=== PATIENT | female | born 1970 | race Caucasian/White ===

== ENCOUNTER 2018-02-14 12:28 | Observation (INO) ==
[2018-02-14] MEDS ORDERED: Gadobenate Dimeglumine PF Inj 10 ML VIAL (for RAD MRI) IVCONTRAST ONE (12:29)
[2018-02-14] MEDS ORDERED: Gadobutrol PF 10 MMOL/10 ML Vial (for RAD) IV.SIG ONE ×2 (12:29→17:12)
--- NOTE | 2018-02-14 13:26 | ED ---
HPI General Chief complaint: Weakness Stated complaint: Weakness/Evac Time Seen by Provider: 02/14/18 12:51 Source: patient Mode of arrival: EMS Limitations: physical limitation History of Present Illness HPI Narrative: 47-year-old female complaining of left-sided numbness and weakness. 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 Patient was admitted to the hospital in [place]. Patient was discharged home with instruction to follow with speech therapy PT and OT. Patient recently moved to [facility]. Patient went to speech therapy this morning. Patient states that she has increasing left-sided weakness since this morning. Patient denies any headache. Patient denies any visual change. Patient denies any neck pain. Patient denies any chest pain or shortness of breath. Patient denies abdominal pain. Patient denies any new injury. Patient is going through speech therapy, OT and PT. Patient states that she is done with OT. Patient continue with speech therapy and PT. MD Complaint: focal weakness and numbness Onset (ago): hour(s) Duration: constant Location: LUE, LLE and face Migration: none Severity: moderate Severity scale (1-10): 5 Quality: numbness Relieving factors: none Exacerbating factors: none Associated symptoms: denies other symptoms Related Data Home Medications Medication Instructions Recorded Confirmed apixaban [Eliquis] 5 mg PO DAILY 02/14/18 02/14/18 levetiracetam [Keppra] 250 mg PO Q12H 02/14/18 02/14/18 Allergies Allergy/AdvReac Type Severity Reaction Status Date / Time codeine Allergy Severe ANGER Verified 02/14/18 13:08 lamotrigine [From Lamictal] Allergy Severe Rash Verified 02/14/18 13:08 atorvastatin [From Lipitor] Allergy Lethargy Verified 02/14/18 13:08 Review of Systems Except as stated in HPI: all other systems reviewed are negative [facility] Medical History Medical History CVA, old, dysarthria (Acute) High cholesterol (Acute) Polycystic kidney (Acute) Polycystic liver disease (Acute) Seizure (Acute) Surgical History Surgical History H/O endarterectomy (Acute) Hx of tubal ligation (Acute) Social History Social History Substance History: No History of Abuse Second Hand Smoke Exposure: No Smoking Status: Former smoker How Often Do You Have a Drink Containing Alcohol: Monthly or less [facility] within the Last 8 Weeks: No Recent Out of Country Travel within the Last 8 Weeks: No Immunization History Tetanus Immunization: Unsure Hx Influenza Vaccine This Season: No Exam Narrative Exam Narrative: GENERAL: Well-nourished, well-developed patient. SKIN: Focused skin assessment warm/dry. HEAD: Normocephalic. EYES: No scleral icterus. No injection or drainage. NECK: Supple, trachea midline. No JVD or lymphadenopathy. CARDIOVASCULAR: Regular rate and rhythm without murmurs, gallops, or rubs. RESPIRATORY: Breath sounds equal bilaterally. No accessory muscle use. GASTROINTESTINAL: Abdomen soft, non-tender, nondistended. MUSCULOSKELETAL: No cyanosis, or edema. BACK: Nontender without obvious deformity. No CVA tenderness. Neurologic exam: Patient has no obvious facial drooping. Visual field intact. Patient has mild weakness left upper and lower extremity. Patient has moderate decrease light touch sensation left upper and lower extremity. Course Initial Documented Vital Signs Temperature 98.3 F 02/14/18 12:30 Pulse Rate 86 02/14/18 12:30 Respiratory Rate 20 02/14/18 12:30 Blood Pressure 149/66 H 02/14/18 12:30 Pulse Oximetry 96 02/14/18 12:30 Last Documented Vital Signs Temperature 98.3 F 02/14/18 12:30 Pulse Rate 74 02/14/18 18:33 Respiratory Rate 19 02/14/18 18:33 Blood Pressure 119/60 02/14/18 18:33 Pulse Oximetry 98 02/14/18 18:33 Medical Decision Making MDM Narrative Medical decision making narrative: 47-year-old female with increase in left- sided weakness and numbness. History of CVA in September 2017 with residual left sided weakness and numbness. Patient states that the weakness and numbness is worse this morning. I spoke with Dr. Hankins, advised MRI MRA. Patient should be admitted for observation and will see patient in the morning. Differential Diagnosis Differential Diagnosis: Differential diagnosis including acute exacerbation weakness and numbness of the left upper lower extremity from CVA, new CVA, electrolyte imbalance. Lab Data Lab results reviewed: Yes I reviewed the patient's lab results. Result diagrams: 02/14/18 12:40 02/14/18 12:40 Lab Results 02/14/18 02/14/18 Range/Units 12:40 12:40 WBC 6.8 (4.0-11.0) th/mm3 RBC 4.05 (4.00-5.30) mil/mm3 Hgb 13.4 (11.6-15.3) gm/dL Hct 38.6 (35.0-46.0) % MCV 95.3 (80.0-100.0) fL MCH 33.0 (27.0-34.0) pg MCHC 34.6 (32.0-36.0) % RDW 12.1 (11.6-17.2) % Plt Count 190 (150-450) th/mm3 MPV 8.2 (7.0-11.0) fL Neut % (Auto) 52.6 (16.0-70.0) % Lymph % (Auto) 36.2 (9.0-44.0) % [place] % (Auto) 9.4 H (0.0-8.0) % Eos % (Auto) 1.5 (0.0-4.0) % Baso % (Auto) 0.3 (0.0-2.0) % Neut # (Auto) 3.6 (1.8-7.7) th/mm3 Lymph # (Auto) 2.5 (1.0-4.8) th/mm3 [place] # (Auto) 0.6 (0.0-0.9) th/mm3 Eos # (Auto) 0.1 (0.0-0.4) th/mm3 Baso # (Auto) 0.0 (0.0-0.2) th/mm3 WBC Differential . Differential Comment Auto diff final Sodium 140 (136-145) meq/L Potassium 3.8 (3.5-5.1) meq/L Chloride 105 (98-107) meq/L Carbon Dioxide 27.2 (21.0-32.0) meq/L Anion Gap 8 (5-15) meq/L BUN 11 (7-18) mg/dL Creatinine 0.87 (0.50-1.00) mg/dL Estimated GFR 69 L (>89) mL/min Random Glucose 77 (74-106) mg/dL Calcium 8.7 (8.5-10.1) mg/dL Total Bilirubin 0.6 (0.2-1.0) mg/dL AST 22 (15-37) U/L ALT 35 (10-53) U/L Alkaline Phosphatase 141 H (45-117) U/L Total Creatine Kinase 66 (26-192) U/L Troponin I Less than 0.02 L (0.02-0.05) ng/mL Total Protein 7.1 (6.4-8.2) g/dL Albumin 3.6 (3.4-5.0) g/dL Imaging Data Radiologist's impression: ITS Impressions Head MRI 02/14/18 13:08 CONCLUSION: 1. Abnormal signal in small scattered areas of the right frontal, temporal, and parietal lobes. The signal characteristics are suggestive of gliosis. This can be seen in prior areas of infarction or less likely trauma. 2. No acute infarction observed. Neck MRA 02/14/18 16:39 CONCLUSION: 1. Patient is left vertebral dominant. 2. Otherwise, cervical vessels are all patent with no significant stenosis Percent stenosis is calculated using the diameter of the stenotic region over the diameter of the normal distal internal carotid artery Discharge Plan Discharge Disposition Patient Disposition: 30 Still Patient Discharge Details Diagnosis: Weakness due to old stroke Physicians Team ED Provider: Mervin Villanueva Primary Care Provider: NON STAFF,PROVIDER Rxs /Orders / Referrals /Forms Prescriptions: No Action levetiracetam [Keppra] 250 mg Tablet 250 mg PO Q12H RF: 0 apixaban [Eliquis] 5 mg Tablet 5 mg PO DAILY RF: 0 Status ED Status: In Room
[2018-02-14 13:40] LABS: Baso % (Auto) 0.3 % (0.0-2.0); Eos # (Auto) 0.1 th/mm3 (0.0-0.4); Eos % (Auto) 1.5 % (0.0-4.0); Hematocrit 38.6 % (35.0-46.0); Hemoglobin 13.4 gm/dL (11.6-15.3); Lymph # (Auto) 2.5 th/mm3 (1.0-4.8); Lymph % (Auto) 36.2 % (9.0-44.0); Mean Corpuscular HGB Conc 34.6 % (32.0-36.0); Mean Corpuscular Volume 95.3 fL (80.0-100.0); Mean Platelet Volume 8.2 fL (7.0-11.0); Mono # (Auto) 0.6 th/mm3 (0.0-0.9); Mono % (Auto) 9.4 % (0.0-8.0); Neut # (Auto) 3.6 th/mm3 (1.8-7.7); Neut % (Auto) 52.6 % (16.0-70.0); Platelet Count 190 th/mm3 (150-450); Red Blood Count 4.05 mil/mm3 (4.00-5.30); Red Cell Distribution Width 12.1 % (11.6-17.2); White Blood Count 6.8 th/mm3 (4.0-11.0)
[2018-02-14 14:08] LABS: Alanine Aminotransferase 35 U/L (10-53); Albumin 3.6 g/dL (3.4-5.0); Anion Gap 8 meq/L (5-15); Aspartate Aminotransferase 22 U/L (15-37); Blood Urea Nitrogen 11 mg/dL (7-18); Calcium 8.7 mg/dL (8.5-10.1); Carbon Dioxide 27.2 meq/L (21.0-32.0); Chloride 105 meq/L (98-107); Glomerular Filtration Rate 69 mL/min (>89); Glucose,Random 77 mg/dL (74-106); Potassium 3.8 meq/L (3.5-5.1); Sodium 140 meq/L (136-145)
[2018-02-14 14:12] LABS: Alkaline Phosphatase 141 U/L (45-117); Total Protein 7.1 g/dL (6.4-8.2)
[2018-02-14 14:26] LABS: Creatine Kinase 66 U/L (26-192)
--- NOTE | 2018-02-14 15:24 | MR ---
EXAM DATE: 02/14/2018 3:09 PM EDT AGE/SEX: 47 years / Female INDICATIONS: CVA. Left sided weakness. CLINICAL DATA: This is the patient's initial encounter. Patient reports that signs and symptoms have been present for 1 day and indicates a pain score of 3/10. MEDICAL/SURGICAL HISTORY: Transient ischemic attack. Polycystic Kidney and Liver. Carotid enda rterectomy. Tubal ligation. COMPARISON: None. TECHNIQUE: Multiplanar, multisequence examination of the brain was performed without and with 7 ml Om niscan (gadodiamide) contrast as a single exam dose. FINDINGS: Cerebrum: Areas of high FLAIR signal involving the cortex and immediate subcortical white matter in m ultiple small foci involving the right frontal, temporal and parietal lobes. The ventricles are emilie l for age. No evidence of midline shift, mass lesion, hemorrhage or acute infarction. No extraaxial fluid collections are seen. The pituitary gland and suprasellar cistern are normal in configuration . White Matter: A few small scattered foci of high FLAIR signal abnormality involving the subcortical white matter of the right frontal and parietal lobes.. Posterior Fossa: The cerebellum and brainstem are intact. The 4th ventricle is midline. The cerebel lopontine angle is unremarkable. The cerebellar tonsils are normal in position. Diffusion Imaging: No focal areas of restricted diffusion are seen. No evidence of acute infarction . Extracranial: The visualized portions of the orbits and paranasal sinuses are unremarkable. Post Contrast: No abnormal areas of parenchymal or dural enhancement. No evidence of blood-brain ba rrier breakdown. CONCLUSION: 1. Abnormal signal in small scattered areas of the right frontal, temporal, and parietal lobes. The signal characteristics are suggestive of gliosis. This can be seen in prior areas of infarction or le ss likely trauma. 2. No acute infarction observed. Electronically signed by: Justin Adams MD 02/14/2018 3:23 PM EDT
--- NOTE | 2018-02-14 17:41 | ECG ---
Date Performed: 02/14/2018 Time Performed: 12:39:54 PTAGE: 47 years EKG: SINUS BRADYCARDIA BORDERLINE ECG NO PREVIOUS TRACING DOCTOR: Tank Abarca Interpretating Date/Time 02/14/2018 17:39:53
--- NOTE | 2018-02-14 17:46 | MR ---
EXAM DATE: 02/14/2018 5:40 PM EDT AGE/SEX: 47 years / Female INDICATIONS: . CVA. CLINICAL DATA: This is the patient's initial encounter. Patient reports that signs and symptoms have been present for 1 day and indicates a pain score of 2/10. MEDICAL/SURGICAL HISTORY: Transient ischemic attack. Coronary artery stent. COMPARISON: No prior exams available for comparison. TECHNIQUE: 10 ml Gadavist (gadobutrol) contrast infused MRA (single exam dose) of the extracranial circulation was performed using a neurovascular coil. Postprocessing was performed, including rotati ng sub-volume maximum intensity projections of each carotid artery, rotating full-volume maximum inte nsity projections of both carotid arteries, sagittal and coronal sliding thin-slab reformations of ea ch carotid artery, and left oblique sliding thin-slab reformation through the aortic arch to include the origin of the arch branch vessels. FINDINGS: Aortic Arch : There is a three-vessel origin of the great vessels from the aorta. No evidence of o stial narrowing. Right Carotid : The common carotid artery is intact. The carotid bulb has a normal configuration wi thout ulceration or narrowing. The internal carotid artery lumen is smooth without stenosis. The ex ternal carotid artery is intact. Left Carotid : The common carotid artery is intact. The carotid bulb has a normal configuration wit hout ulceration or narrowing. The internal carotid artery lumen is smooth without stenosis. The ext ernal carotid artery is intact. Vertebrals : Patient is left vertebral dominant. The right vertebral may terminate in a PICA branch CONCLUSION: 1. Patient is left vertebral dominant. 2. Otherwise, cervical vessels are all patent with no significant stenosis Percent stenosis is calculated using the diameter of the stenotic region over the diameter of the nor mal distal internal carotid artery Electronically signed by: Cr Sousa MD 02/14/2018 5:44 PM EDT
[2018-02-14 20:03] LABS: Bacteria,Urine Moderate /hpf; Bilirubin,Urine Negative (Negative); Clarity,Urine Clear (Clear); Color,Urine Straw (Yellw/Straw); Glucose,Urine (UA) Negative (Negative); Leukocyte Esterase,Urine Negative (Negative); Nitrite,Urine Negative (Negative); Specific Gravity,Urine 1.002 (1.002-1.035); Squamous Epithelial Cell,Urine 1 /hpf (0-5)
[2018-02-14] MEDS ORDERED: Acetaminophen 325 MG Tablet PO PRN (21:02)
[2018-02-14] MEDS ORDERED: Bisacodyl 10 MG Supp RECTAL PRN (21:02)
[2018-02-14] MEDS ORDERED: Heparin - SQ 10,000 UNITS/ML Vial SQ SCH (21:15)
--- NOTE | 2018-02-15 04:22 | P.HP ---
History of Present Illness Service: [facility] Primary Care Physician: PROVIDER NON STAFF Chief Complaint: weakness History of Present Illness: 47-year-old female with a past medical history significant for previous CVA, seizure disorder, hyperlipidemia, polycystic kidney and liver disease presents to the emergency department for the evaluation of left-sided weakness. The patient reports that her weakness started yesterday morning. He denies any rhinorrhea or headaches. No visual changes. No chest pain or shortness of breath. No abdominal pain. No nausea/vomiting/diarrhea. No fever/chills. The patient reports that her symptoms have now resolved with her strength is back to baseline. Inpatient Certification: I certify that the inpatient services were ordered in accordance with Medicare regulations governing the order. This includes certification that hospital inpatient services are reasonable and necessary and in the case of services not specified as inpatient-only under 42 CFR 419.22(n), that they are appropriately provided as inpatient services in accordance to with the 2-midnight benchmark under 43 CFR 412.3(e) Review of Systems All other systems reviewed negative except as stated in HPI PMFSH - History History Provided By: Patient - Medical History Medical History: Medical History (Last Reviewed 02/14/18 @ 13:22 by Mervin Villanueva MD) CVA, old, dysarthria High cholesterol Polycystic kidney Polycystic liver disease Seizure - Surgical History Surgical History: Surgical History (Last Reviewed 02/14/18 @ 13:22 by Mervin Villanueva MD) H/O endarterectomy Hx of tubal ligation - Tobacco History Second Hand Smoke Exposure: No Tobacco Use In Past 30 Days: No Smoking Status: Former smoker - Alcohol History How Often Do You Have a Drink Containing Alcohol: Monthly or less - Substance Use History Substance History: No History of Abuse - Travel History Recent Travel in the [place] Within the Last 8 Weeks: No Recent Travel Out of the Country Within the Last 8 Weeks: No - Immunization History Tetanus Immunization: Unsure Hx Influenza Vaccine This Season: No Medications and Allergies Active Medications: Active Medications Acetaminophen (Tylenol) 650 mg PO Q4H PRN PRN Reason: Temp > 100.4 Al Hydroxide/Mg Hydroxide (Milk Of Magnlorna Liq) 30 ml PO Q12H PRN PRN Reason: Mild Constipation Bisacodyl (Dulcolax Supp) 10 mg RECTAL DAILY PRN PRN Reason: SEVERE CONSITIPATION Heparin Sodium (Porcine) (Heparin Inj) 5,000 units SQ Q12H [facility] Last Admin: 02/14/18 23:41 Dose: 5,000 units Lactulose (Lactulose Liq) 30 ml PO DAILY PRN PRN Reason: SEVERE CONSITIPATION Ondansetron HCl (Zofran Inj) 4 mg IV.PUSH Q6H PRN PRN Reason: NAUSEA OR VOMITING Senna/Docusate Sodium (Nicolle-Colace) 1 tab PO BID [facility] Sennosides (Senokot) 17.2 mg PO Q12H PRN PRN Reason: Moderate Constipation Sodium Chloride (Ns Flush) 2 ml IV.FLUSH PRN PRN PRN Reason: FLUSH AFTER USING IV ACCESS Allergies Allergy/AdvReac Type Severity Reaction Status Date / Time codeine Allergy Severe ANGER Verified 02/14/18 13:08 lamotrigine [From Lamictal] Allergy Severe Rash Verified 02/14/18 13:08 atorvastatin [From Lipitor] Allergy Lethargy Verified 02/14/18 13:08 Home Medications Medication Instructions Recorded Confirmed Type apixaban [Eliquis] 5 mg PO DAILY 02/14/18 02/14/18 History levetiracetam [Keppra] 250 mg PO Q12H 02/14/18 02/14/18 History Exam Vital signs: Vital Signs 02/14/18 12:30 02/14/18 12:40 02/14/18 13:30 Temperature 98.3 F Pulse Rate 86 58 L Respiratory Rate 20 16 Blood Pressure 149/66 H 155/71 H Pulse Oximetry 96 96 99 02/14/18 14:30 02/14/18 18:33 02/14/18 23:44 Temperature 97.8 F Pulse Rate 56 L 74 77 Respiratory Rate 15 19 17 Blood Pressure 145/65 H 119/60 115/57 L Pulse Oximetry 98 98 97 Intake & Output 02/14/18 02/14/18 02/15/18 06:59 18:59 06:59 Weight 74.389 kg Narrative: Gen.: No acute distress Head: Normocephalic. Atraumatic. EENT: Pupils equal round and reactive to light. Nose without drainage. Airway intact. Throat without injection. Cardiovascular: Regular rate and rhythm. No murmurs, rubs or gallops. Respiratory: Lungs clear to auscultation bilaterally. No wheezes or rhonchi. Abdomen: Soft, nontender, nondistended. No peritoneal signs. Musculoskeletal: No gross deformities. No edema. Skin: No obvious rashes or erythema. Neuro: Cranial nerves II through XII intact. 5/5 strength throughout all 4 extremities. Handgrip strength 5/5. No paresthesias. Sensation intact. Psych: Appropriate mood and affect Results - Labs CBC & Chem 7: 02/14/18 12:40 02/14/18 12:40 Labs: Laboratory Results - last 24 hr 02/14/18 02/14/18 02/14/18 12:40 12:40 13:48 WBC 6.8 RBC 4.05 Hgb 13.4 Hct 38.6 MCV 95.3 MCH 33.0 MCHC 34.6 RDW 12.1 Plt Count 190 MPV 8.2 Neut % (Auto) 52.6 Lymph % (Auto) 36.2 [place] % (Auto) 9.4 H Eos % (Auto) 1.5 Baso % (Auto) 0.3 Neut # (Auto) 3.6 Lymph # (Auto) 2.5 [place] # (Auto) 0.6 Eos # (Auto) 0.1 Baso # (Auto) 0.0 WBC Differential . Differential Comment Auto diff final Sodium 140 Potassium 3.8 Chloride 105 Carbon Dioxide 27.2 Anion Gap 8 BUN 11 Creatinine 0.87 Estimated GFR 69 L Random Glucose 77 Calcium 8.7 Total Bilirubin 0.6 AST 22 ALT 35 Alkaline Phosphatase 141 H Total Creatine Kinase 66 Troponin I Less than 0.02 L Total Protein 7.1 Albumin 3.6 Urine Color Straw Urine Clarity Clear Urine pH 6.0 Ur Specific [place] 1.002 Urine Protein Negative Urine Glucose (UA) Negative Urine Ketones Negative Urine Occult Blood Negative Urine Nitrate Negative Urine Bilirubin Negative Urine Urobilinogen Less than 2 Ur Leukocyte Esterase Negative Urine RBC Less than 1 Urine WBC 1 Ur Squamous Epith Cells 1 Urine Bacteria Moderate H Micro UA Comment Culture indicated Urine Culture Comments Culture indicated - Imaging Impressions Head MRI 02/14/18 13:08 CONCLUSION: 1. Abnormal signal in small scattered areas of the right frontal, temporal, and parietal lobes. The signal characteristics are suggestive of gliosis. This can be seen in prior areas of infarction or less likely trauma. 2. No acute infarction observed. Neck MRA 02/14/18 16:39 CONCLUSION: 1. Patient is left vertebral dominant. 2. Otherwise, cervical vessels are all patent with no significant stenosis Percent stenosis is calculated using the diameter of the stenotic region over the diameter of the normal distal internal carotid artery Caprini VTE Risk Assessment [place] VTE Risk Assessment: Moderate/High Risk (score >= 2) Caprini Risk Assessment Model: Point Value = 1 Point Value = 2 Point Value = 3 Point Value = 5 Age 41-60 Minor surgery BMI > 25 kg/m2 Swollen legs Varicose veins or History of unexplained or recurrent spontaneous Oral contraceptives or hormone replacement Sepsis (< 1 month) Serious lung disease, including pneumonia (< 1 month) Abnormal pulmonary function Acute myocardial infarction Congestive heart failure (< 1 month) History of inflammatory bowel disease Medical patient at bed rest Age 61-74 Arthroscopic surgery Major open surgery (> 45 min) Laparoscopic surgery (> 45 min) Malignancy Confined to bed (> 72 hours) Immobilizing plaster cast Central venous access Age >= 75 History of VTE Family history of VTE Factor V Leiden Prothrombin [id number] Lupus anticoagulant Anticardiolipin antibodies Elevated serum homocysteine Heparin-induced thrombocytopenia Other congenital or acquired thrombophilia Stroke (< 1 month) Elective arthroplasty Hip, pelvis, or leg fracture Acute spinal cord injury (< 1 month) Prophylaxis Regimen: Total Risk Factor Score Risk Level Prophylaxis Regimen 0-1 Low Early ambulation 2 Moderate Order ONE of the following: *Sequential Compression Device (SCD) *Heparin 5000 units SQ BID 3-4 Higher Order ONE of the following medications: *Heparin 5000 units SQ TID *Enoxaparin/Lovenox 40 mg SQ daily (WT < 150 kg, CrCl > 30 mL/min) *Enoxaparin/Lovenox 30 mg SQ daily (WT < 150 kg, CrCl > 10-29 mL/min) *Enoxaparin/Lovenox 30 mg SQ BID (WT < 150 kg, CrCl > 30 mL/min) AND/OR *Sequential Compression Device (SCD) 5 or more Highest Order ONE of the following medications: *Heparin 5000 units SQ TID (Preferred with Epidurals) *Enoxaparin/Lovenox 40 mg SQ daily (WT < 150 kg, CrCl > 30 mL/min) *Enoxaparin/Lovenox 30 mg SQ daily (WT < 150 kg, CrCl > 10-29 mL/min) *Enoxaparin/Lovenox 30 mg SQ BID (WT < 150 kg, CrCl > 30 mL/min) AND *Sequential Compression Device (SCD) Assessment and Plan - Plan Assessment/plan: 1. TIA/weakness MRI brain significant for previous infarction without signs of acute process MRA without significant stenosis Neurology consulted, appreciate recommendations Continue Eliquis 2. Seizure disorder Continue home Kepp 3. Hyperlipidemia Continue home statin FEN Cardiac diet Electrolytes: Monitor and replete as needed Eliquis
[2018-02-15] MEDS: levETIRAcetam 250 MG Tablet PO SCH ×2 (05:10→16:11)
[2018-02-15] MEDS: Senna/Docusate Sodium 8.6/50 MG Tablet PO SCH ×2 (10:05→21:00)
[2018-02-15 10:38] LABS: Baso % (Auto) 0.2 % (0.0-2.0); Eos # (Auto) 0.1 th/mm3 (0.0-0.4); Hematocrit 38.9 % (35.0-46.0); Hemoglobin 13.4 gm/dL (11.6-15.3); Lymph % (Auto) 38.2 % (9.0-44.0); Mean Corpuscular HGB Conc 34.5 % (32.0-36.0); Mean Corpuscular Hemoglobin 33.1 pg (27.0-34.0); Mean Corpuscular Volume 95.8 fL (80.0-100.0); Mono # (Auto) 0.5 th/mm3 (0.0-0.9); Mono % (Auto) 8.9 % (0.0-8.0); Neut # (Auto) 2.7 th/mm3 (1.8-7.7); Neut % (Auto) 50.7 % (16.0-70.0); Platelet Count 195 th/mm3 (150-450); Red Blood Count 4.06 mil/mm3 (4.00-5.30); Red Cell Distribution Width 12.3 % (11.6-17.2); White Blood Count 5.2 th/mm3 (4.0-11.0)
[2018-02-15 11:00] LABS: Calcium 8.6 mg/dL (8.5-10.1); Carbon Dioxide 26.5 meq/L (21.0-32.0); Potassium 3.7 meq/L (3.5-5.1)
--- NOTE | 2018-02-15 20:02 | MB ---
cc: Kj Hankins MD, PhD Kj Hankins MD PhD DATE: 02/15/2018 REASON FOR CONSULTATION: TIA. HISTORY OF PRESENT ILLNESS: This is a 47-year-old female with history of previous stroke and seizure disorder, polycystic kidney disease, who yesterday developed increased left-sided weakness and presented to the ER. Today, the symptoms have resolved. She is back to her baseline state. PAST MEDICAL HISTORY: She has a history of a stroke in the past, dysarthria, hypercholesterolemia, polycystic kidney disease, polycystic liver disease, seizure disorder. MEDICATIONS: 1. Eliquis at home 5 mg b.i.d. 2. Dulcolax. 3. Lactulose. 4. Keppra 250 mg b.i.d. 5. Zofran p.r.n. NEUROLOGICAL EXAMINATION: Blood pressure is 110/56, pulse 84, respirations 14, temperature 97.3 degrees. Higher cortical functions are normal. Cranial nerves 2-12 are normal in detail. Motor exam is 5/5 strength of all groups. There is no drift. Fine motor skills are normal. Reflexes are symmetric. IMAGING STUDIES: MRI of the brain: Chronic changes are seen in the right frontotemporal and parietal lobes, consistent with gliosis probably due to previous stroke. No findings of any acute infarction identified. MRI of the neck is reviewed and is within normal limits with no evidence of any significant stenosis. LABORATORY DATA: White count 5200, hemoglobin 13.4, hematocrit 38.9%, platelet count 195,000. Sodium is 143, potassium 3.7, chloride 107, CO2 of 26.5, BUN is 15, creatinine 0.87, GFR 69, glucose is 81. IMPRESSION: Probable transient ischemic attack, now resolved. RECOMMENDATIONS: We will add low-dose aspirin 81 mg to the Eliquis. The patient is stable. She could be discharged home tomorrow if no other neurologic events. Kj Hankins MD, PhD JOHANNA/ , 07:41 PM , 08:00 PM
[2018-02-16] MEDS: levETIRAcetam 250 MG Tablet PO SCH (06:04)
[2018-02-16 07:55] LABS: Chol/HDL Ratio 2.38 Ratio; HDL Cholesterol 63.2 mg/dL (40.0-60.0)
[2018-02-16] MEDS: Senna/Docusate Sodium 8.6/50 MG Tablet PO SCH (09:26)
--- NOTE | 2018-02-16 12:13 | ECHRPT ---
Indication: CVA/TIA CONCLUSIONS The left ventricular systolic function is normal with an estimated ejection fraction in the range of 60-65%. There is trace tricuspid valve regurgitation. The estimated pulmonary arterial pressure is 22.8 mmHg. BP: / HR: Rhythm: Sinus MEASUREMENTS (Male / Female) Normal Values Technical Quality:Good 2D ECHO LV Diastolic Diameter PLAX 4.0 cm 4.2 - 5.9 / 3.9 - 5.3 cm LV Systolic Diameter PLAX 2.9 cm IVS Diastolic Thickness 1.0 cm 0.6 - 1.0 / 0.6 - 0.9 cm LVPW Diastolic Thickness 1.0 cm 0.6 - 1.0 / 0.6 - 0.9 cm LV Relative Wall Thickness 0.5 RV Internal Dim ED PLAX 2.9 cm LVOT Diameter 2.0 cm LA Systolic Diameter LX 2.8 cm 3.0 - 4.0 / 2.7 - 3.8 cm M-MODE Aortic Root Diameter MM 2.2 cm AV Cusp Separation MM 2.2 cm DOPPLER AV Peak Velocity 89.6 cm/s AV Peak Gradient 3.2 mmHg LVOT Peak Velocity 73.1 cm/s LVOT Peak Gradient 2.1 mmHg AV Area Cont Eq pk 2.6 cm MV Area PHT 3.7 cm Mitral E Point Velocity 43.4 cm/s Mitral A Point Velocity 54.8 cm/s Mitral E to A Ratio 0.8 LV E' Lateral Velocity 5.9 cm/s Mitral E to LV E' Lateral Ratio 7.3 LV E' Septal Velocity 4.5 cm/s Mitral E to LV E' Septal Ratio 9.7 TR Peak Velocity 179.0 cm/s TR Peak Gradient 12.8 mmHg Right Atrial Pressure 10.0 mmHg Pulmonary Artery Systolic Pressu 22.8 mmHg Right Ventricular Systolic Press 22.8 mmHg PV Peak Velocity 76.0 cm/s PV Peak Gradient 2.3 mmHg FINDINGS LEFT VENTRICLE The left ventricular systolic function is normal with an estimated ejection fraction in the range of 60-65%. Normal left ventricular size. Wall thickness is normal. No regional wall motion abnormalities are present. RIGHT VENTRICLE Normal right ventricular size and systolic function. LEFT ATRIUM The left atrial size is normal. RIGHT ATRIUM The right atrial size is normal. ATRIAL SEPTUM Normal atrial septal thickness without atrial level shunting by limited color doppler interrogation. AORTA The aortic root and proximal ascending aorta are normal in size on limited imaging. MITRAL VALVE Structurally normal mitral valve. No mitral valve stenosis or regurgitation. AORTIC VALVE Trileaflet aortic valve. No aortic valve stenosis or regurgitation. TRICUSPID VALVE Structurally normal tricuspid valve. There is trace tricuspid valve regurgitation. The estimated pulmonary arterial pressure is 22.8 mmHg. PULMONARY VALVE No pulmonary valve regurgitation or stenosis. VESSELS The inferior vena cava is normal in size. PERICARDIUM No pericardial effusion. Devyn Carson MD, FACC (Electronically Signed) Final Date:16 February 2018 12:11
--- NOTE | 2018-02-16 13:32 | P.PN ---
Subjective Interval history: Follow up TIA, left sided weakness. The patient reports her left sided weakness has resolved and her symptoms have returned to baseline. She denies any new medical complaints including no headache, lightheadedness, dizziness, chest pain , palpitations, shortness of breath, or abdominal complaints. She feels ready to go home. She plans to continue her outpatient physical therapy after discharge. Physical Exam Vital signs: Vital Signs 02/15/18 16:00 02/15/18 17:14 02/15/18 20:00 Temperature 97.6 F 98.1 F Pulse Rate 84 76 69 Respiratory Rate 14 16 Blood Pressure 110/56 L 124/68 Pulse Oximetry 98 97 02/16/18 00:00 02/16/18 01:00 02/16/18 04:00 Temperature 98.5 F 97.7 F Pulse Rate 62 78 70 Respiratory Rate 16 17 Blood Pressure 121/58 L 123/59 L Pulse Oximetry 95 97 02/16/18 08:00 02/16/18 12:00 Temperature 97.8 F 98.0 F Pulse Rate 62 72 Respiratory Rate 16 16 Blood Pressure 122/58 L 114/56 L Pulse Oximetry 97 95 Intake & Output 02/15/18 02/16/18 02/16/18 18:59 06:59 18:59 Intake Total 1020 / 1020 Balance 1020 / 1020 Weight 74.37 kg Intake: Oral 1020 / 1020 Other: # Voids 1 Date of Last Bowel Movement 02/16/18 Weight On Admission 74.389 kg Narrative: GENERAL: Well-nourished, well-developed middle aged female patient in [facility]. SKIN: Warm and dry. No rash. HEENT: Normocephalic. Atraumatic. Pupils equal and round. Mucous membranes pink and moist. CARDIOVASCULAR: Regular rate and rhythm. No murmur appreciated. RESPIRATORY: No accessory muscle use. Clear to auscultation. Breath sounds equal bilaterally. GASTROINTESTINAL: Abdomen soft, non-tender, nondistended. Normoactive bowel sounds x4. MUSCULOSKELETAL: No obvious deformities. Extremities without clubbing, cyanosis , or edema. NEUROLOGICAL: Awake and alert. No obvious cranial nerve deficits. Motor grossly within normal limits. Moving all extremities spontaneously. Mild aphasia. PSYCHIATRIC: Appropriate mood and affect; insight and judgment normal. Results - Labs CBC & Chem 7: 02/15/18 09:27 02/15/18 09:27 Laboratory Results - last 24 hr 02/16/18 06:10 Triglycerides 86 Cholesterol 151 LDL Cholesterol, Calc 71 HDL Cholesterol 63.2 H Cholesterol/HDL Ratio 2.38 Microbiology 02/14/18 13:48 Clean Catch Urine Urine Culture - Final 50-100,000 cfu/mL mixed gram positive marlon (probable contaminants) - Imaging Brain MRI 02/14/18: Abnormal signal in small scattered areas of the right frontal , temporal, and parietal lobes. The signal characteristics are suggestive of gliosis. This can be seen in prior areas of infarction or less likely trauma. No acute infarction observed. Head MRA 02/14/18: Patient is left vertebral dominant. Otherwise, cervical vessels are all patent with no significant stenosis Assessment and Plan - Plan 47-year-old female with a past medical history significant for previous CVA, seizure disorder, hyperlipidemia, polycystic kidney and liver disease presents to the emergency department for the evaluation of left-sided weakness. TIA, LUE Weakness: acute. Symptoms now improved. -MRI brain significant for previous infarction without signs of acute process -MRA without significant stenosis -Continue patient's Eliquis 5mg bid -Echo normal with EF 60-65% -Neurology consulted, appreciate recommendations, recommends adding baby aspirin daily -No further episodes, cleared for discharge by neurology Seizure disorder: chronic -Continue home Keppra Hyperlipidemia: chronic -Continue home statin DVT Prophylaxis: on Eliquis Discharge Planning: Discharge patient to home, outpatient physical therapy Condition on discharge: Stable Heart Healthy diet as tolerated Ad Cori activity Rx written: aspirin 81mg daily Follow-up with primary care physician and neurologist Dr. Hankins
== END 2018-02-16 15:14 | disposition home or self-care (01) ==
LOC: NEDA 12:28 → NEPGCP 12:28 → NEPC 12:28 → NEPGCP 21:00
PROVIDERS: ADMIT Family Medicine; ATTEND Family Medicine

== ENCOUNTER 2018-05-02 11:50 | Inpatient (IN) ==
[2018-05-02] MEDS ORDERED: Aluminum/Magnesium/Simethacone Susp 30 ML UDC PO PRN (14:10)
[2018-05-02] MEDS: levETIRAcetam 250 MG Tablet PO SCH (18:05)
[2018-05-02] MEDS ORDERED: Melatonin 5 MG Tablet PO PRN (21:00)
[2018-05-02] MEDS: Topiramate 25 MG Tablet PO SCH (21:24)
[2018-05-03] MEDS: levETIRAcetam 250 MG Tablet PO SCH ×2 (05:07→19:30)
[2018-05-03 07:40] LABS: Calcium 8.9 mg/dL (8.5-10.1); Carbon Dioxide 23.9 meq/L (21.0-32.0); Potassium 3.3 meq/L (3.5-5.1)
[2018-05-03 07:44] LABS: Chol/HDL Ratio 2.2 Ratio
[2018-05-03] MEDS: Topiramate 25 MG Tablet PO SCH ×2 (09:10→21:28)
[2018-05-03] MEDS ORDERED: Aluminum/Magnesium/Simethacone Susp 30 ML UDC PO PRN (13:52)
--- NOTE | 2018-05-03 14:18 | P.HPPSY ---
Provisional Diagnosis Admission Date: May 02, 2018 13:57 [place] I.: Psychotic disorder NOS Competence Certification of Person's Competence To Provide Express and Informed Consent I have personally examined Vanessa Carballo, a person being served at [facility] on, May 03, 2018 1403. Express and informed consent means consent voluntarily given in writing, by a competent person, after sufficient explanation and disclosure of the subject matter involved to enable the person to make a knowing and willful decision without any element of force, fraud, deceit, duress, or other form of constraint or coercion. This person is 18 years of age or older, is not now known to be incompetent to consent to treatment with a guardian advocate, and does not have a health care surrogate or proxy currently making medical treatment decisions. I have found this person to be one of the following: [] Competent to provide express and informed consent, as defined above, for voluntary admission to this facility and is competent to provide express and informed consent for treatment. He/she has the consistent capacity to make well reasoned, willful, and knowing decisions concerning his or her medical or mental health treatment. The person fully and consistently understands the purpose of the admission for examination/placement and is fully capable of personally exercising all rights [place] [[id number]] Incompetent to provide express and informed consent to voluntary admission, and this is incompetent to provide express and informed consent to treatment. The person must be transferred to involuntary status and a petition for a guardian advocate filed with the Circuit Court. [] Refusing to provide express and informed consent to voluntary admission but is competent to provide express and informed consent for treatment. The person must be discharged or transferred to involuntary status. Form shall be completed within 24 hours of a person's arrival at the receiving facility and filed in the clinical record of each person: 1. Admitted on a voluntary basis 2. Permitted to provide express and informed consent to his/her own treatment 3. Allowed to transfer from involuntary to voluntary status 4. Prior to permitting a person to consent to his or her own treatment after having been previously found incompetent to consent to treatment. History of Present Illness Capacity: Lacks capacity History of Present Illness: Patient is a 47-year-old female who comes here under Ray act from [facility] dated 05/01/2018 signed by a [id number] [place] that document reviewed stating suicidal plan to take pill homicidal plan to hurt family with a knife patient was seen screen at that facility radiographs were done that showed polycystic kidneys, urine toxicology negative blood alcohol level negative. Patient transferred to this facility for further care and attention after being medically cleared patient initially seen in her room with nurse Tyrese. Patient anxious markedly paranoid vigilant and distractible. She is quite disorganized in her responses essentially refusing to give any information. Though reluctantly acknowledges history of mental illness that she does see a psychiatrist she has been hospitalized in the past otherwise her responses were see my records. She became more and more angry finally stopped speaking with me. I did call patient's and Christy Gannon that [phone] we stated she had been caring for Vanessa since her stroke in September 2017. Ms. Childress states she has had 3-4 TIAs since then. Does see mental health through [facility]. But has had a long psychiatric history preceding the stroke. It appears that Vanessa is becoming more more psychotic and bizarre. She has been making phone calls to her son and daughter threatening to harm them. She left the house on Tuesday and is not been seen since then they were about to place a missing persons for her. Ms. Childress states that the patient daughter Ivana Diez at [phone] his power of district attorney, she also has a son will be involved at [phone] there is involved with her. It appears that this patient's mental history goes back many years. In any event at the present time patient meets criteria for further assessment and treatment under the Ray act referral she does not have capacity thus I will ask for health care surrogate and guardian advocate as well as a second opinion under the petition. We will have our hospitalist's assess patient also. I feel she may benefit from being assessed by our neuropsychologist at this time I feel she is too paranoid for him to make an accurate assessment. I did leave a message with patient's daughter hopefully she will return our call. We will refrain from any psychiatric medications until we get further information. We will have counselor nurse attempted to call [facility] to see if we can get some information from them - Inpatient Certification I certify that the inpatient services were ordered in accordance with Medicare regulations governing the order. This includes certification that hospital inpatient services are reasonable and necessary and in the case of services not specified as inpatient-only under 42 CFR 419.22(n), that they are appropriately provided as inpatient services in accordance to with the 2-midnight benchmark under 43 CFR 412.3(e) I certify that inpatient psychiatric hospital services are medically necessary. Evaluation and treatment and/or diagnostic testing are expected to improve the patient's condition. The patient needs on a daily basis, active treatment furnished directly by or requiring the supervision of inpatient psychiatric facility personnel. Estimated Total Length of Stay (Days): 7 Plans for Post Hospital Care: Not yet determined Review of Systems unobtainable due to mental condition PMFSH - History History Provided By: Patient, Family Member - Medical History Medical History: Medical History (Last Reviewed 02/15/18 @ 08:59 by Dylan Kim) CVA, old, dysarthria High cholesterol Polycystic kidney Polycystic liver disease Seizure - Surgical History Surgical History: Surgical History (Last Reviewed 02/15/18 @ 08:59 by Dylan Kim) H/O endarterectomy Hx of tubal ligation - Tobacco History Second Hand Smoke Exposure: Yes Smoking Status: Never smoker - Alcohol History How Often Do You Have a Drink Containing Alcohol: Never - Substance Use History Substance History: No History of Abuse - Immunization History Tetanus Immunization: Unsure Hx Influenza Vaccine This Season: No Quality Measures - Psychiatric History Psychological trauma history: Unknown at this time due to patient's psychosis Violence risk to others in the last 6 months: The peers patient made threats to harm her children Violence risk to self in the last 6 months: Patient made statements wanting to kill herself - Substance Abuse History Drug or alcohol use in the past 12 months: Unknown at this time - Patient Strengths Patient's strengths (minimum of 2): Patient verbal able access healthcare has supportive family Medications and Allergies Active Medications: Active Medications Acetaminophen (Tylenol) 650 mg PO Q4H PRN PRN Reason: Pain 1-5 or Temp >101F Al Hydrox/Mg Hydrox/Simethicone (Mag-Al Plus Susp Liq) 30 ml PO Q6H PRN PRN Reason: DYSPEPSIA Al Hydrox/Mg Hydrox/Simethicone (Mag-Al Plus Susp Liq) 30 ml PO Q6H PRN PRN Reason: DYSPEPSIA Al Hydroxide/Mg Hydroxide (Milk Of Magnesia Liq) 30 ml PO Q12H PRN PRN Reason: Mild Constipation Apixaban (Eliquis) 5 mg PO BID [facility] Last Admin: 05/03/18 09:10 Dose: 5 mg Aspirin (Aspirin Chew) 81 mg PO DAILY [facility] Last Admin: 05/03/18 09:10 Dose: 81 mg Diphenhydramine HCl (Benadryl) 50 mg PO HS PRN PRN Reason: INSOMNIA Levetiracetam (Keppra) 250 mg PO Q12H [facility] Last Admin: 05/03/18 05:07 Dose: 250 mg Nicotine (Habitrol 21 Mg Patch.24 Hr) 1 patch T-DERMAL DAILY PRN PRN Reason: Nicotine craving Patch Removal (Remove Old Patch) 1 each T-DERMAL DAILY [facility] Last Admin: 05/03/18 09:11 Dose: Not Given Topiramate (Topamax) 25 mg PO BID [facility] Last Admin: 05/03/18 09:10 Dose: 25 mg Allergies Allergy/AdvReac Type Severity Reaction Status Date / Time codeine Allergy Severe ANGER Verified 02/14/18 13:08 lamotrigine [From Lamictal] Allergy Severe Rash Verified 02/14/18 13:08 atorvastatin [From Lipitor] Allergy Lethargy Verified 02/14/18 13:08 Home Medications Medication Instructions Recorded Confirmed Type levetiracetam [Keppra] 250 mg PO Q12H 02/14/18 02/14/18 History topiramate PO Q12HR 05/02/18 History Results - Labs CBC & Chem 7: 05/03/18 06:30 Labs: Laboratory Results - last 24 hr 05/03/18 06:30 Sodium 142 Potassium 3.3 L Chloride 112 H Carbon Dioxide 23.9 Anion Gap 6 BUN 11 Creatinine 0.96 Estimated GFR 62 L Random Glucose 95 Calcium 8.9 Triglycerides 60 Cholesterol 143 LDL Cholesterol, Calc 66 HDL Cholesterol 65.0 H Cholesterol/HDL Ratio 2.20 Exam Vital signs: Vital Signs 05/02/18 14:09 05/03/18 05:39 Temperature 98.6 F 98.2 F Pulse Rate 81 82 Respiratory Rate 17 17 Blood Pressure 169/75 H 157/70 H Pulse Oximetry 100 94 L Intake & Output 05/02/18 05/03/18 05/03/18 18:59 06:59 18:59 Intake Total 480 / 480 Balance 480 / 480 Weight 73.3 kg Intake: Oral 480 / 480 Other: Weight On Admission 73.3 kg Narrative: Patient sitting is somewhat agitated paranoid vigilant state in her room though she is in no acute physical distress she is in no respiratory distress no complaints of chest pain or abdominal pain. Patient moving all 4 extremities without difficulty Mental Status Examination Appearance: Disheveled Consciousness: Alert Orientation: Person Motor Activity: Normal gait Speech: Pressured, Other (Markedly disorganized) Language: Adequate Fund of Knowledge: Inadequate Attention and Concentration: Easily distracted Memory: Impaired Mood: Oppositional, Anxious, Irritable Affect: Other (Decreased range and intensity) Thought Process & Associations: Disorganized Thought Content: Bizarre thinking Hallucination Type: Auditory Delusion Type: Bizarre, Paranoid (Appears to be responding to internal stimuli) Suicidal Ideation: Yes Suicidal Plan: No Suicidal Intention: No Homicidal Ideation: Yes Homicidal Plan: No Homicidal Intention: No (The) Insight: Poor Judgment: Poor Assessment and Plan - Assessment (1) Unspecified psychosis Code(s): F29 - Unspecified psychosis not due to a substance or known physiological condition Status: Acute - Plan Plan: Estimated LOS: [] days Patient remains quite psychotic and disorganized at this time does not have capacity to make decisions concerning her care or admission thus I will ask for health care surrogate and guardian advocate will have hospitalist consult with us. We will continue to attempt to reach patient's daughter who is the power of district attorney. We will have nurse attempt to reduce his daily him get further information about prescribed medications Justification for Continued Inpatient Stay: At this time patient would decompensate a place to a lower level of care Discharge Planning: To be determined Request Healthcare Surrogate/Guardian Advocate?: Yes
[2018-05-03 15:39] LABS: Hemoglobin A1c 5.3 % (4.3-6.0)
--- NOTE | 2018-05-03 17:41 | P.CON ---
History of Present Illness Service: [facility] Consult date: 05/03/18 Requesting Physician: Sujit Patricio Reason for Consult: CVA, TIA, polycystic kidney disease Primary Care Provider: PROVIDER NON STAFF Chief Complaint: "I don't know, I don't feel good" History of Present Illness: Patient is a 47-year-old female with past medical history of CVA, TIA, polycystic disease of the kidneys and liver who initially came in to [facility] for complaints of abdominal pain. Patient had a workup done and did not show any etiology. Ultrasound of the kidneys showed polycystic kidney disease which was seen before without hydronephrosis. Patient made a statement of hurting herself by taking pills as per report. She is now Ray acted and transferred to inpatient psychiatry unit for further evaluation. Consulted for assistance with medical management. Patient seen and examined today. Initially in the dining room patient attempted to throw herself on the floor but her impact was caught on by DRIER AND EVAPORATOR OPERATOR's. She was placed back on the chair she pretends to be, unresponsive trying to slide off the chair. Sternal rub was done, patient jump off the chair and says "Alright, I am okay,I am okay." She then was able to walk towards her room. Patient appears to be paranoid staring at the nurse and not wanting to talk. Appears to have expressive aphasia. Patient states that "I do not want to talk because I am going to get hurt if I talk."Patient answers questions occasionally , and would follow commands occasionally. Otherwise tries to hide her face after staring at the nurse, looking suspicious. States she has abdominal pain, reports nausea, vomiting. As per nursing there was no nausea or vomiting noted today. Patient then states that she will talk anymore after answering few questions. Denies SOB/ dyspnea. Denies chest pain. Denies fevers. Denies dysuria. Review of Systems All other systems reviewed negative except as stated in HPI, other (Limited, due to paranoia) PMFSH - History History Provided By: Patient, Family Member - Medical History Medical History: Medical History (Last Reviewed 05/03/18 @ 17:24 by ROSHAN Garcia) CVA, old, dysarthria High cholesterol Polycystic kidney Polycystic liver disease Seizure - Surgical History Surgical History: Surgical History (Last Reviewed 05/03/18 @ 17:24 by ROSHAN Garcia) H/O endarterectomy Hx of tubal ligation - Family History Family History: Family History (Last Updated 05/03/18 @ 17:27 by ROSHAN Garcia) Other Patient's father is Patient's mother is in good health - Social History I have reviewed the patient's Social History: Yes - Tobacco History Second Hand Smoke Exposure: Yes Smoking Status: Former smoker - Alcohol History How Often Do You Have a Drink Containing Alcohol: Never - Substance Use History Substance History: No History of Abuse - Immunization History Tetanus Immunization: Unsure Hx Influenza Vaccine This Season: No Medications and Allergies Active Medications: Active Medications Acetaminophen (Tylenol) 650 mg PO Q4H PRN PRN Reason: Pain 1-5 or Temp >101F Al Hydrox/Mg Hydrox/Simethicone (Mag-Al Plus Susp Liq) 30 ml PO Q6H PRN PRN Reason: DYSPEPSIA Al Hydroxide/Mg Hydroxide (Milk Of Magnesia Liq) 30 ml PO Q12H PRN PRN Reason: Mild Constipation Apixaban (Eliquis) [address] [facility] Last Admin: 05/03/18 09:10 Dose: 5 mg Aspirin (Aspirin Chew) [address] [facility] Last Admin: 05/03/18 09:10 Dose: 81 mg Diphenhydramine HCl (Benadryl) 50 mg PO HS PRN PRN Reason: INSOMNIA Hydroxyzine HCl (Atarax) 50 mg PO Q6H PRN PRN Reason: ANXIETY Levetiracetam (Keppra) [address] [facility] Last Admin: 05/03/18 05:07 Dose: 250 mg Nicotine (Habitrol 21 Mg Patch.24 Hr) 1 patch T-DERMAL DAILY PRN PRN Reason: Nicotine craving Patch Removal (Remove Old Patch) 1 each T-DERMAL DAILY [facility] Last Admin: 05/03/18 09:11 Dose: Not Given Topiramate (Topamax) [address] [facility] Last Admin: 05/03/18 09:10 Dose: 25 mg Allergies Allergy/AdvReac Type Severity Reaction Status Date / Time codeine Allergy Severe ANGER Verified 02/14/18 13:08 lamotrigine [From Lamictal] Allergy Severe Rash Verified 02/14/18 13:08 atorvastatin [From Lipitor] Allergy Lethargy Verified 02/14/18 13:08 Home Medications Medication Instructions Recorded Confirmed Type levetiracetam [Keppra] 250 mg PO Q12H 02/14/18 02/14/18 History topiramate PO Q12HR 05/02/18 History Physical Exam Vital signs: Vital Signs 05/03/18 05:39 Temperature 98.2 F Pulse Rate 82 Respiratory Rate 17 Blood Pressure 157/70 H Pulse Oximetry 94 L Intake & Output 05/02/18 05/03/18 05/03/18 18:59 06:59 18:59 Intake Total 480 / 480 Balance 480 / 480 Weight 73.3 kg Intake: Oral 480 / 480 Other: Weight On Admission 73.3 kg Narrative: GENERAL: This is a well-nourished, well-developed patient, in no apparent distress. SKIN: Warm and dry. HEENT: Normocephalic. Pupils equal round and reactive. Nose without bleeding. Airway patent. NECK: Trachea midline. CARDIOVASCULAR: Regular rate without murmurs, gallops, or rubs. RESPIRATORY: Clear to auscultation. Breath sounds equal bilaterally. No wheezes , rales, or rhonchi. GASTROINTESTINAL: Abdomen soft, non-tender, nondistended. Bowel Sounds normoactive x4. MUSCULOSKELETAL: Extremities without clubbing, cyanosis, or edema. NEUROLOGICAL: Awake and alert. No focal neuro deficit. Moves all extremities. Mild expressive aphasia Assessment and Plan - Plan Patient is a 47-year-old female with past medical history of CVA, TIA, polycystic disease of the kidneys and liver who initially came in to [facility] for complaints of abdominal pain. Patient made a statement of hurting herself by taking pills as per report. She is now Ray acted and transferred to inpatient psychiatry unit for further evaluation. Consulted for assistance with medical management. Psychosis, paranoia, suicidal ideation -Managed by psychiatry team History of CVA TIA Expressive aphasia, mild Seizure DO -Review of previous imaging, MRI showed abnormal signal and small scattered areas of the right frontal, temporal, and parietal lobes. The signal characteristics are suggestive of gliosis. This can be seen in prior areas of infarction or less likely trauma. No acute infarction observed. -Neck MRI showed patient is left vertebral dominant otherwise, cervical vessels are all patent with no significant stenosis -Previous Echocardiogram with EF of 60-65% -Continue Eliquis, aspirin, Keppra, Topamax -Seizure precaution Polycystic kidney disease -Review of ultrasound of the kidneys from [facility] showed polycystic kidney disease which was seen before without hydronephrosis. -Avoid nephrotoxins -Monitor renal indicis intermittently Abdominal Pain -Unknown etiology. Workup in [facility] did not show any abnormal findings. -Labs were reviewed within normal, patient is unable to describe any of her pain or any of her complaints. Possible somatic etiology -U tox negative at [facility] DVT prop ambulatory Code Status: Full code Discussed Condition With: Patient, nursing Discharge Planning: DC disposition by primary team
[2018-05-04] MEDS: levETIRAcetam 250 MG Tablet PO SCH ×3 (05:11→18:49)
[2018-05-04] MEDS: Topiramate 25 MG Tablet PO SCH ×2 (10:54→22:55)
--- NOTE | 2018-05-04 13:04 | P.CONPSY ---
Provisional Diagnosis Admission Date: May 02, 2018 13:57 [place] I.: 1. Unspecified psychosis [place] II.: Deferred History of Present Illness Service: Psychiatry Consult date: 05/04/18 Requesting Physician: Sujit Patricio Reason for Consult: Second opinion for involuntary psychiatric hospitalization Primary Care Provider: PROVIDER NON STAFF History of Present Illness: From Dr. Patricio's H&P: Patient is a 47-year-old female who comes here under Ray act from [facility] dated 05/01/2018 signed by a [id number] Sea that document reviewed stating suicidal plan to take pill homicidal plan to hurt family with a knife patient was seen screen at that facility radiographs were done that showed polycystic kidneys, urine toxicology negative blood alcohol level negative. Patient transferred to this facility for further care and attention after being medically cleared patient initially seen in her room with nurse Tyrese. Patient anxious markedly paranoid vigilant and distractible. She is quite disorganized in her responses essentially refusing to give any information. Though reluctantly acknowledges history of mental illness that she does see a psychiatrist she has been hospitalized in the past otherwise her responses were see my records. She became more and more angry finally stopped speaking with me. I did call patient's and Christy Gannon that [phone] we stated she had been caring for Vanessa since her stroke in September 2017. Ms. Childress states she has had 3-4 TIAs since then. Does see mental health through [facility]. But has had a long psychiatric history preceding the stroke. It appears that Vanessa is becoming more more psychotic and bizarre. She has been making phone calls to her son and daughter threatening to harm them. She left the house on Tuesday and is not been seen since then they were about to place a missing persons for her. Ms. Childress states that the patient daughter Ivana Diez at [phone] his power of ip technology transactions attorney, she also has a son will be involved at [phone] there is involved with her. It appears that this patient's mental history goes back many years. In any event at the present time patient meets criteria for further assessment and treatment under the Ray act referral she does not have capacity thus I will ask for health care surrogate and guardian advocate as well as a second opinion under the petition. We will have our hospitalist's assess patient also. I feel she may benefit from being assessed by our neuropsychologist at this time I feel she is too paranoid for him to make an accurate assessment. I did leave a message with patient's daughter hopefully she will return our call. We will refrain from any psychiatric medications until we get further information. We will have counselor nurse attempted to call [facility] to see if we can get some information from them On my exam today, 05/04: Patient seen and examined with nurse. Chart reviewed. Case discussed with nursing staff. On my examination today, the patient is initially mute, feigning sleep. She does at length begin to interact. She grimaces and cries. She calls out "I don't know what to do! Everything I try is wrong! I'm not Vanessa, you have the wrong person!" Nurse confirms that patient is in fact Ms. Carballo. Patient then says "I don't know what to do. I broke the rules!" She then pulls the covers over her head and cries. Psychiatric interview is limited because of the patient's current distress. No acute physical complaints. Review of Systems unobtainable due to mental condition PMFSH - History History Provided By: Patient, Family Member - Medical History Medical History: Medical History (Last Reviewed 05/03/18 @ 17:24 by ROSHAN Garcia) CVA, old, dysarthria High cholesterol Polycystic kidney Polycystic liver disease Seizure - Surgical History Surgical History: Surgical History (Last Reviewed 05/03/18 @ 17:24 by ROSHAN Garcia) H/O endarterectomy Hx of tubal ligation - Family History Family History: Family History (Last Updated 05/03/18 @ 17:27 by ROSHAN Garcia) Other Patient's father is Patient's mother is in good health - Tobacco History Second Hand Smoke Exposure: Yes Smoking Status: Former smoker - Alcohol History How Often Do You Have a Drink Containing Alcohol: Never - Substance Use History Substance History: No History of Abuse - Immunization History Tetanus Immunization: Unsure Hx Influenza Vaccine This Season: No Medications and Allergies Active Medications: Active Medications Acetaminophen (Tylenol) 650 mg PO Q4H PRN PRN Reason: Pain 1-5 or Temp >101F Al Hydrox/Mg Hydrox/Simethicone (Mag-Al Plus Susp Liq) 30 ml PO Q6H PRN PRN Reason: DYSPEPSIA Al Hydroxide/Mg Hydroxide (Milk Of Magnesia Liq) 30 ml PO Q12H PRN PRN Reason: Mild Constipation Apixaban (Eliquis) 5 mg PO BID [facility] Last Admin: 05/04/18 10:54 Dose: Not Given Aspirin (Aspirin Chew) 81 mg PO DAILY [facility] Last Admin: 05/04/18 10:54 Dose: Not Given Diphenhydramine HCl (Benadryl) 50 mg PO HS PRN PRN Reason: INSOMNIA Last Admin: 05/03/18 21:28 Dose: 50 mg Hydroxyzine HCl (Atarax) 50 mg PO Q6H PRN PRN Reason: ANXIETY Levetiracetam (Keppra) 250 mg PO Q12H [facility] Last Admin: 05/04/18 05:17 Dose: Not Given Nicotine (Habitrol 21 Mg Patch.24 Hr) 1 patch T-DERMAL DAILY PRN PRN Reason: Nicotine craving Patch Removal (Remove Old Patch) 1 each T-DERMAL DAILY [facility] Last Admin: 05/04/18 10:54 Dose: Not Given Topiramate (Topamax) 25 mg PO BID [facility] Last Admin: 05/04/18 10:54 Dose: Not Given Allergies Allergy/AdvReac Type Severity Reaction Status Date / Time codeine Allergy Severe ANGER Verified 02/14/18 13:08 lamotrigine [From Lamictal] Allergy Severe Rash Verified 02/14/18 13:08 atorvastatin [From Lipitor] Allergy Lethargy Verified 02/14/18 13:08 Home Medications Medication Instructions Recorded Confirmed Type levetiracetam [Keppra] 250 mg PO Q12H 02/14/18 02/14/18 History topiramate PO Q12HR 05/02/18 History Exam Vital signs: Vital Signs 05/03/18 17:47 05/04/18 05:54 Temperature 98.3 F 98 F Pulse Rate 129 H 87 Respiratory Rate 18 16 Blood Pressure 117/78 122/67 Pulse Oximetry 96 97 Intake & Output 05/03/18 05/04/18 05/04/18 18:59 06:59 18:59 Intake Total 480 / 480 Balance 480 / 480 Weight 73.1 kg Intake: Oral 480 / 480 Narrative: Physical examination was completed by hospitalist software consultant. On my examination today, the patient appears to be in no acute physical distress. No motor abnormalities noted. Labs and vital signs reviewed: Laboratory Results - last 72 hr 05/03/18 05/03/18 06:30 06:30 Sodium 142 Potassium 3.3 L Chloride 112 H Carbon Dioxide 23.9 Anion Gap 6 BUN 11 Creatinine 0.96 Estimated GFR 62 L Random Glucose 95 Hemoglobin A1c 5.3 Calcium 8.9 Triglycerides 60 Cholesterol 143 LDL Cholesterol, Calc 66 HDL Cholesterol 65.0 H Cholesterol/HDL Ratio 2.20 Mental Status Examination Appearance: Disheveled Consciousness: Alert Orientation: Person Motor Activity: Other (No motor abnormalities noted) Speech: Hesitant Language: Adequate Attention and Concentration: Easily distracted Mood: Anxious Affect: Anxious, Other (Dysphoric) Thought Process & Associations: Tangential Thought Content: Bizarre thinking Hallucination Type: None Delusion Type: Other (Guarded) Suicidal Ideation: No Homicidal Ideation: No Insight: Poor Judgment: Poor Assessment and Plan - Assessment (1) Unspecified psychosis Code(s): F29 - Unspecified psychosis not due to a substance or known physiological condition Status: Acute - Plan Plan: Given the circumstances of the patient's presentation here and her presentation on my examination to day, I concur with Dr. Patricio that the patient meets criteria for involuntary psychiatric hospitalization under the Ray act. I have completed the second opinion paperwork. Further care as per Dr. Patricio. Thank you very much for this consultation. Signing off. Justification for Continued Inpatient Stay: Per Dr. Patricio Request Healthcare Surrogate/Guardian Advocate?: Yes
--- NOTE | 2018-05-04 13:47 | P.PNPSY ---
Subjective Remarks: Patient seen with nurse Naye and medical student Shelli Jiang, chart reviewed, patient remains quite psychotic paranoid delusional. She also at this time is selectively mute. Palpation made brief eye contact with me while laying down in her bed she refused to answer any of my questions. We continue to attempt to reach patient's daughter to get more information and hopefully discover what medication she has been on the past and may have been efficacious Review of Systems All other systems reviewed negative except as stated in HPI Mental Status Examination Appearance: Disheveled Consciousness: Alert Orientation: Person Motor Activity: Normal gait Speech: Other (Patient selectively mute at this time) Language: Other (Patient selectively mute at this time) Fund of Knowledge: Inadequate Attention and Concentration: Easily distracted Memory: Impaired Mood: Oppositional, Anxious, Irritable Affect: Other (Decreased range and intensity) Thought Process & Associations: Disorganized Thought Content: Bizarre thinking Hallucination Type: Auditory Delusion Type: Bizarre, Paranoid (Appears to be responding to internal stimuli) Suicidal Ideation: Yes Suicidal Plan: No Suicidal Intention: No Homicidal Ideation: Yes Homicidal Plan: No Homicidal Intention: No (The) Insight: Poor Judgment: Poor Assessment and Plan - Assessment (1) Unspecified psychosis Code(s): F29 - Unspecified psychosis not due to a substance or known physiological condition Status: Acute - Plan Plan: Patient remains psychotic and delusional at this time selectively mute with me Justification for Continued Inpatient Stay: At this time patient would decompensate a place to a lower level of care Discharge Planning: To be determined Request Healthcare Surrogate/Guardian Advocate?: Yes
--- NOTE | 2018-05-04 16:28 | P.PN ---
Subjective Interval history: Patient seen and examined today. Continues to be delusional. Does not want to talk. States that "I have chest pain but I do not want to talk." Upon palpation of the chest the patient retracted and appears to be in pain however all of a sudden the patient stop talking and close her eyes and stop grimacing and appears to be okay even with deep palpation. Patient blurred out words such as "I do want to ." When asked further about it patient also said "I do want to talk to you." As per nursing, patient has refused her medications today. Patient has been delusional and not able to talk to anyone. Continues to be reclusive. Physical Exam Vital signs: Vital Signs 05/03/18 17:47 05/04/18 05:54 Temperature 98.3 F 98 F Pulse Rate 129 H 87 Respiratory Rate 18 16 Blood Pressure 117/78 122/67 Pulse Oximetry 96 97 Intake & Output 05/03/18 05/04/18 05/04/18 18:59 06:59 18:59 Intake Total 480 / 480 Balance 480 / 480 Weight 73.1 kg Intake: Oral 480 / 480 Narrative: GENERAL: This is a well-nourished, well-developed patient, in no apparent distress. SKIN: Warm and dry. HEENT: Normocephalic. Pupils equal round and reactive. Nose without bleeding. Airway patent. NECK: Trachea midline. CARDIOVASCULAR: Tachycardic without murmurs, gallops, or rubs. Nontender to palpate. RESPIRATORY: Clear to auscultation. Breath sounds equal bilaterally. No wheezes , rales, or rhonchi. GASTROINTESTINAL: Abdomen soft, non-tender, nondistended. Bowel Sounds normoactive x4. MUSCULOSKELETAL: Extremities without clubbing, cyanosis, or edema. NEUROLOGICAL: Awake and alert. No focal neuro deficit. Moves all extremities. Mild expressive aphasia Results - Labs CBC & Chem 7: 05/03/18 06:30 Laboratory Results - last 24 hr 05/03/18 06:30 Hemoglobin A1c 5.3 Assessment and Plan - Plan Patient is a 47-year-old female with past medical history of CVA, TIA, polycystic disease of the kidneys and liver who initially came in to [facility] for complaints of abdominal pain. Patient made a statement of hurting herself by taking pills as per report. She is now Ray acted and transferred to inpatient psychiatry unit for further evaluation. Consulted for assistance with medical management. Psychosis, paranoia, suicidal ideation -Managed by psychiatry team -Continues to be reclusive, refusing medications. History of CVA TIA Expressive aphasia, mild Seizure DO -Review of previous imaging, MRI showed abnormal signal and small scattered areas of the right frontal, temporal, and parietal lobes. The signal characteristics are suggestive of gliosis. This can be seen in prior areas of infarction or less likely trauma. No acute infarction observed. -Neck MRI showed patient is left vertebral dominant otherwise, cervical vessels are all patent with no significant stenosis -Previous Echocardiogram with EF of 60-65% -Continue Eliquis, aspirin, Keppra, Topamax -Seizure precaution -Monitor since patient has been refusing medications. Polycystic kidney disease -Review of ultrasound of the kidneys from [facility] showed polycystic kidney disease which was seen before without hydronephrosis. -Avoid nephrotoxins -Monitor renal indicis intermittently Abdominal Pain -Unknown etiology. Workup in [facility] did not show any abnormal findings. -Labs were reviewed within normal, patient is unable to describe any of her pain or any of her complaints. Possible somatic etiology -U tox negative at [facility] DVT prop ambulatory Full code Discussed with patient, nursing Discharge Planning: DC disposition by primary team
[2018-05-05] MEDS: levETIRAcetam 250 MG Tablet PO SCH (04:38)
[2018-05-05] MEDS: Topiramate 25 MG Tablet PO SCH ×2 (10:15→21:18)
--- NOTE | 2018-05-05 14:58 | P.PNPSY ---
Subjective Remarks: Patient seen sitting on the floor in the doorway to her room with nurse Raymundo and medical student Lianna. Chart reviewed. Patient somewhat more verbal although she continues with significant thought blocking and delayed responses. It appears as if she is responding to internal stimuli glancing over her right shoulder. She made vague statement about talking to other people are talking to God. She refused to answer questions related to her past mental health history though she vaguely, reluctantly acknowledge she may have some psychiatrist years ago. She refused to answer any questions about medication. At this time I feel patient remains markedly psychotic and delusional. She does not have capacity thus I did ask for health care surrogate and guardian advocate did attempt to reach patient's daughter ashley at [phone] left her message on her voicemail. I have ordered Geodon 20 mg p.o. twice daily to be given only with permission of healthcare surrogate Guardian advocate. I have also ordered Geodon 10 mg IM twice daily in his place if patient refuses the oral scheduled dose then to only with permission of healthcare surrogate/ guardian advocate upon consideration of patient's past behaviors with us I feel his diagnosis may be better subsumed under schizophrenia chronic paranoid type Review of Systems All other systems reviewed negative except as stated in HPI Mental Status Examination Appearance: Disheveled Consciousness: Alert Orientation: Person Motor Activity: Other (No motor abnormalities noted) Speech: Hesitant Language: Adequate Fund of Knowledge: Inadequate Attention and Concentration: Easily distracted Memory: Impaired Mood: Anxious Affect: Anxious, Other (Dysphoric) Thought Process & Associations: Tangential Thought Content: Bizarre thinking Hallucination Type: Auditory (Patient is showing significant thought blocking and distractibility) Delusion Type: Paranoid Suicidal Ideation: No Suicidal Plan: No Suicidal Intention: No Homicidal Ideation: No Homicidal Plan: No Homicidal Intention: No (The) Insight: Poor Judgment: Poor Assessment and Plan - Assessment (1) Unspecified psychosis Code(s): F29 - Unspecified psychosis not due to a substance or known physiological condition Status: Acute - Plan Plan: Patient remains quite psychotic and delusional with auditory hallucinations please see medication adjustments above we continue to need to talk with patient 's daughter to get permission Justification for Continued Inpatient Stay: At this time patient would decompensate a place to a lower level of care Discharge Planning: To be determined Request Healthcare Surrogate/Guardian Advocate?: Yes (1) Unspecified psychosis Qualifiers: Schizophrenia type: paranoid schizophrenia
--- NOTE | 2018-05-05 16:31 | P.PN ---
Subjective Interval history: Follow-up visit psychosis, seizure, history of CVAs. Patient seen today. She is laying in between the door and the hallway. Eyes is closed, does not answer to questions or follows any commands. As per nursing patient has been doing that and has not been following any of their commands or requests. Patient does not want to talk to anyone. Physical Exam Vital signs: Vital Signs 05/05/18 05:13 Temperature 98.6 F Pulse Rate 110 H Respiratory Rate 16 Blood Pressure 179/82 H Pulse Oximetry 95 Intake & Output 05/04/18 05/05/18 05/05/18 18:59 06:59 18:59 Intake Total 360 / 360 Balance 360 / 360 Intake: Oral 360 / 360 Narrative: GENERAL: This is a well-nourished, well-developed patient, in no apparent distress. SKIN: Warm and dry. HEENT: Normocephalic. MUSCULOSKELETAL: Extremities without clubbing, cyanosis, or edema. NEUROLOGICAL: Eyes closed. Opens to painful stimulation, does not follow any commands. Moves all extremities Results - Labs CBC & Chem 7: 05/03/18 06:30 Assessment and Plan - Plan Patient is a 47-year-old female with past medical history of CVA, TIA, polycystic disease of the kidneys and liver who initially came in to [facility] for complaints of abdominal pain. Patient made a statement of hurting herself by taking pills as per report. She is now [facility] and transferred to inpatient psychiatry unit for further evaluation. Consulted for assistance with medical management. Psychosis, paranoia, suicidal ideation -Managed by psychiatry team -Continues to be reclusive, refusing medications. History of CVA TIA Expressive aphasia, mild Seizure DO -Review of previous imaging, MRI showed abnormal signal and small scattered areas of the right frontal, temporal, and parietal lobes. The signal characteristics are suggestive of gliosis. This can be seen in prior areas of infarction or less likely trauma. No acute infarction observed. -Neck MRI showed patient is left vertebral dominant otherwise, cervical vessels are all patent with no significant stenosis -Previous Echocardiogram with EF of 60-65% -Continue Eliquis, aspirin, Keppra, Topamax -Seizure precaution -Monitor since patient has been refusing medications. Medical management would not be able to be achieved if patient continues to have severe psychosis and paranoia. Recommend to address this so the patient can continue to take her medications. Polycystic kidney disease -Review of ultrasound of the kidneys from [facility] showed polycystic kidney disease which was seen before without hydronephrosis. -Avoid nephrotoxins -Monitor renal indicis intermittently Abdominal Pain -Unknown etiology. Workup in [facility] did not show any abnormal findings. -Labs were reviewed within normal, patient is unable to describe any of her pain or any of her complaints. Possible somatic etiology -U tox negative at [facility] DVT prop ambulatory Full code Discussed with patient, nursing Medical management to continue as recommended. We will sign off. Reconsult as needed. Thank you. Discharge Planning: DC disposition by primary team
[2018-05-06] MEDS: levETIRAcetam 250 MG Tablet PO SCH ×2 (05:45→17:29)
[2018-05-06] MEDS: Topiramate 25 MG Tablet PO SCH ×2 (09:32→21:30)
[2018-05-06] MEDS ORDERED: levETIRAcetam 250 MG Tablet PO ONE (09:45)
--- NOTE | 2018-05-06 18:45 | P.PNPSY ---
Subjective Remarks: Reviewed electronic medical records and discussed case with staff. Follow-up was conducted in the day room with CLIFF Garduno present. Patient found sitting in a Hanna chair. She reports that she is doing "okay". Her mood is very depressed as there is her affect. She states she has not slept for days. She reports that she does not have an appetite. Her nurse did report that she has not been eating and has been acting out. She also was resistant to taking her morning medications. I have been able to contact her younger brother who is having her daughter's call so that we can obtain consent for the Geoelpidio. Mental Status Examination Appearance: Disheveled Consciousness: Alert Orientation: Person Motor Activity: Other (No motor abnormalities noted) Speech: Hesitant Language: Adequate Fund of Knowledge: Inadequate Attention and Concentration: Easily distracted Memory: Impaired Mood: Anxious Affect: Anxious, Other (Dysphoric) Thought Process & Associations: Tangential Thought Content: Bizarre thinking Hallucination Type: Auditory (Patient is showing significant thought blocking and distractibility) Delusion Type: Paranoid Suicidal Ideation: No Suicidal Plan: No Suicidal Intention: No Homicidal Ideation: No Homicidal Plan: No Homicidal Intention: No (The) Insight: Poor Judgment: Poor Assessment and Plan - Assessment (1) Unspecified psychosis Code(s): F29 - Unspecified psychosis not due to a substance or known physiological condition Status: Acute - Plan Plan: Patient will be reevaluated Tuesday by the attending psychiatrist. Continue with current treatment plan. Justification for Continued Inpatient Stay: Moving this patient to a less restrictive environment would likely result in decompensation. Request Healthcare Surrogate/Guardian Advocate?: Yes (1) Unspecified psychosis Qualifiers: Schizophrenia type: paranoid schizophrenia
[2018-05-07] MEDS: Topiramate 25 MG Tablet PO SCH ×2 (08:53→20:43)
[2018-05-07] MEDS: levETIRAcetam 250 MG Tablet PO SCH ×2 (08:53→17:02)
--- NOTE | 2018-05-07 12:03 | P.PNPSY ---
Subjective Remarks: Reviewed electronic medical records and discussed case with staff. Follow-up was conducted in the patient's room with CLIFF Garduno. Patient is refusing po Geodon and was given the medication IM. She is not willing to engage in conversation. She is dishelved and not eating. Encouraged her to eat small frequent snacks. Encouraged her to take a shower. She does not recall acting out yesterday. She will be moved to 2500 so that they can assist her with hygiene. Review of Systems All other systems reviewed negative except as stated in HPI Mental Status Examination Appearance: Disheveled Consciousness: Alert Orientation: Person Motor Activity: Other (No motor abnormalities noted) Speech: Hesitant Language: Adequate Fund of Knowledge: Inadequate Attention and Concentration: Easily distracted Memory: Impaired Mood: Anxious Affect: Sad Thought Process & Associations: Tangential Thought Content: Bizarre thinking Hallucination Type: Auditory (Patient is showing significant thought blocking and distractibility) Delusion Type: Paranoid Suicidal Ideation: No Suicidal Plan: No Suicidal Intention: No Homicidal Ideation: No Homicidal Plan: No Homicidal Intention: No (The) Insight: Poor Judgment: Poor Assessment and Plan - Assessment (1) Unspecified psychosis Code(s): F29 - Unspecified psychosis not due to a substance or known physiological condition Status: Acute - Plan Plan: Patient will be reevaluated Tuesday by the attending psychiatrist. Continue with current treatment plan. Justification for Continued Inpatient Stay: Moving to a less restrictive environment may result in her decompensation. Will move patient to 2500 for more management and assistance with ADLs and meals. Request Healthcare Surrogate/Guardian Advocate?: Yes (1) Unspecified psychosis Qualifiers: Schizophrenia type: paranoid schizophrenia
[2018-05-08] MEDS: levETIRAcetam 250 MG Tablet PO SCH ×5 (07:09→16:21)
[2018-05-08] MEDS: Topiramate 25 MG Tablet PO SCH ×2 (08:45→22:49)
--- NOTE | 2018-05-08 10:46 | P.TTN ---
- Patient Problems Problems: 1. Discharge planning 2. Medication compliance 3. Knowledge deficit 4. Lack of coping skills - Progress Toward Goals Provider Present: Dr. Carmen Patricio Provider Input: Pt is new to this MD; pt to be assessed today. Psychiatric Counselors Present: Tor Villalobos Jr., [facility] Psychiatric Therapist Input: Pt is new to this therapist, assessment today. Group Spec/RT/OT/AGUILAR Present: Caio Le OT, LAUREN Valenzuela Group Spec/RT/OT/AGUILAR Input: Pt has not attended groups since her admission to unit, she is a new pt over this weekend. - Discharge Plan Pt is new, no current discharge plan has been formulated. - Documentation Scribe: Caio Le MS, OTR Teaching Recipient: Patient
--- NOTE | 2018-05-08 10:56 | P.PNPSY ---
Subjective Remarks: Patient seen in her room with nurse Paulina and medical student Lianna, chart reviewed, patient is showing increased compliance with the oral Geodon, only needed a few of the injections. Patient resting quietly in her bed she is showing improved range and intensity of her affect, with improved eye contact. She is more verbal, and cooperative says she is thinking somewhat clear. She denies voices at this time though she still has episodes of what appears to thought blocking and distractibility. For now continue treatment no change Review of Systems All other systems reviewed negative except as stated in HPI Mental Status Examination Appearance: Disheveled Consciousness: Alert Orientation: Person, Place, Date/Time Motor Activity: Other (No motor abnormalities noted) Speech: Hesitant (Improving) Language: Adequate Fund of Knowledge: Inadequate Attention and Concentration: Easily distracted Memory: Impaired Mood: Anxious Affect: Other (Decreased range and intensity) Thought Process & Associations: Tangential (Improving) Thought Content: Bizarre thinking (Decreasing) Hallucination Type: Auditory (Denies today of the regular continues occasional thought blocking) Delusion Type: Paranoid (Improved) Suicidal Ideation: No Suicidal Plan: No Suicidal Intention: No Homicidal Ideation: No Homicidal Plan: No Homicidal Intention: No (The) Insight: Poor Judgment: Poor Assessment and Plan - Assessment (1) Unspecified psychosis Code(s): F29 - Status: Acute - Plan Plan: Patient remained psychotic though improving, increased compliance medication, for now continue treatment Justification for Continued Inpatient Stay: At this time patient would decompensate a place to a lower level of care Discharge Planning: To be determined Request Healthcare Surrogate/Guardian Advocate?: Yes (1) Unspecified psychosis Qualifiers: Psychosis type: schizophrenia Schizophrenia type: paranoid schizophrenia Qualified Code(s): F20.0 - Paranoid schizophrenia
[2018-05-09] MEDS: levETIRAcetam 250 MG Tablet PO SCH ×2 (05:47→17:47)
[2018-05-09] MEDS: Topiramate 25 MG Tablet PO SCH ×2 (09:30→20:48)
--- NOTE | 2018-05-09 14:48 | P.PNPSY ---
Subjective Remarks: Patient seen today in her room with nurse and medical student Neeta, chart reviewed, patient compliant medications. Patient is showing some increased affect today she is somewhat more verbal with improved eye contact. It appears also her appetite is getting somewhat better. There is some anxiety related to possible placement issues with her. We need to discuss this with the counselor Review of Systems All other systems reviewed negative except as stated in HPI Mental Status Examination Appearance: Disheveled Consciousness: Alert Orientation: Person, Place, Date/Time Motor Activity: Other (No motor abnormalities noted) Speech: Hesitant (Improving) Language: Adequate Fund of Knowledge: Inadequate Attention and Concentration: Easily distracted Memory: Impaired Mood: Anxious Affect: Other (Decreased range and intensity) Thought Process & Associations: Tangential (Improving) Thought Content: Bizarre thinking (Decreasing) Hallucination Type: Auditory (Denies today of the regular continues occasional thought blocking) Delusion Type: Paranoid (Improved) Suicidal Ideation: No Suicidal Plan: No Suicidal Intention: No Homicidal Ideation: No Homicidal Plan: No Homicidal Intention: No (The) Insight: Poor Judgment: Poor Assessment and Plan - Assessment (1) Unspecified psychosis Code(s): F29 - Unspecified psychosis not due to a substance or known physiological condition Status: Acute - Plan Plan: Patient's psychosis is lifting, she is compliant medication, for now continue treatment Justification for Continued Inpatient Stay: At this time patient would decompensate a place to a lower level of care Discharge Planning: To be determined Request Healthcare Surrogate/Guardian Advocate?: Yes (1) Unspecified psychosis Qualifiers: Psychosis type: schizophrenia Schizophrenia type: paranoid schizophrenia Qualified Code(s): F20.0 - Paranoid schizophrenia
[2018-05-10] MEDS: levETIRAcetam 250 MG Tablet PO SCH ×2 (05:14→20:08)
[2018-05-10] MEDS: Topiramate 25 MG Tablet PO SCH ×2 (10:18→20:53)
--- NOTE | 2018-05-10 13:39 | P.PNPSY ---
Subjective Remarks: Patient seen and alatorre with nurse Naye, patient calm cooperative however she is scheduled for [facility] tomorrow. Attempt to discuss with her my opinion that she can sign voluntary. She stated she talked to the project surveyor earlier in it appears he convinced her to appear from the discharge. Patient states she was not able to review those forms so she wants to talk to the epitaxial reactor technician. Thus we will talk to the epitaxial reactor technician tomorrow [address] overall patient doing better Review of Systems All other systems reviewed negative except as stated in HPI Mental Status Examination Appearance: Disheveled Consciousness: Alert Orientation: Person, Place, Date/Time Motor Activity: Other (No motor abnormalities noted) Speech: Hesitant (Improving) Language: Adequate Fund of Knowledge: Inadequate Attention and Concentration: Easily distracted Memory: Impaired Mood: Anxious Affect: Other (Decreased range and intensity) Thought Process & Associations: Tangential (Improving) Thought Content: Bizarre thinking (Decreasing) Hallucination Type: Auditory (Denies today of the regular continues occasional thought blocking) Delusion Type: Paranoid (Improved) Suicidal Ideation: No Suicidal Plan: No Suicidal Intention: No Homicidal Ideation: No Homicidal Plan: No Homicidal Intention: No (The) Insight: Poor Judgment: Poor Assessment and Plan - Assessment (1) Unspecified psychosis Code(s): F29 - Unspecified psychosis not due to a substance or known physiological condition Status: Acute - Plan Plan: Patient's psychosis is resolving. We will take patient to [facility] [address] tomorrow at her request by food she does have the capacity to sign voluntary Justification for Continued Inpatient Stay: At this time patient would decompensate if not placed in an appropriate level of care Discharge Planning: To be determined Request Healthcare Surrogate/Guardian Advocate?: Yes (1) Unspecified psychosis Qualifiers: Psychosis type: schizophrenia Schizophrenia type: paranoid schizophrenia Qualified Code(s): F20.0 - Paranoid schizophrenia
--- NOTE | 2018-05-10 15:30 | P.TTN ---
- Patient Problems Problems: 1. Discharge planning 2. Medication compliance 3. Knowledge deficit 4. Lack of coping skills - Progress Toward Goals Provider Present: Dr. Carmen Patricio Provider Input: 05/10/18: Discuss discharge plans for possible placement. Pt is new to this MD; pt to be assessed today. Nurse(s) Present: Evy RN Nurse Input: 05/10/18: Appropriate with staff. Treatment cooperatie, med- compliant, calmer mood. Psychiatric Counselors Present: Tor Villalobos Jr., [facility], Other (Klaudia Atkinson) Psychiatric Therapist Input: 05/10/18: Cooperative, more talkative, needs more time. Pt is new to this therapist, assessment today. Group Spec/RT/OT/AGUILAR Present: DOMENICO Yancey, Caio Le, OT Group Spec/RT/OT/AGUILAR Input: 05/10/18: Pt attends select group activities. Pt appears more social with peers. Pt has not attended groups since her admission to unit, she is a new pt over this weekend. - Discharge Plan Pt is new, no current discharge plan has been formulated. - Documentation Scribe: Caio Le, MS, OTR Teaching Recipient: Patient
[2018-05-11] MEDS: levETIRAcetam 250 MG Tablet PO SCH (06:21)
[2018-05-11] MEDS: Topiramate 25 MG Tablet PO SCH ×2 (08:35→21:15)
--- NOTE | 2018-05-11 12:03 | P.PNPSY ---
Subjective Remarks: Patient seen [place] [address] today retained by Goldy Vila, patient's daughter Dee to be healthcare surrogate. 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 Patient was quite anxious though related to possible placement issues. For now we will continue medications though increasing the Geodon to 20 mg a.m. 40 mg at bedtime. Work with counselors related to finding appropriate placement Review of Systems All other systems reviewed negative except as stated in HPI Mental Status Examination Appearance: Disheveled Consciousness: Alert Orientation: Person, Place, Date/Time Motor Activity: Other (No motor abnormalities noted) Speech: Hesitant (Improving) Language: Adequate Fund of Knowledge: Inadequate Attention and Concentration: Easily distracted Memory: Impaired Mood: Anxious Affect: Other (Decreased range and intensity) Thought Process & Associations: Tangential (Improving) Thought Content: Bizarre thinking (Decreasing) Hallucination Type: Auditory (Denies today of the regular continues occasional thought blocking) Delusion Type: Paranoid (Improved) Suicidal Ideation: No Suicidal Plan: No Suicidal Intention: No Homicidal Ideation: No Homicidal Plan: No Homicidal Intention: No (The) Insight: Poor Judgment: Poor Assessment and Plan - Assessment (1) Unspecified psychosis Code(s): F29 - Unspecified psychosis not due to a substance or known physiological condition Status: Acute - Plan Plan: Patient retained by Goldy Vila, daughter to be healthcare surrogate, see medication adjustment above, continue to work on placement issues Justification for Continued Inpatient Stay: At this time patient would decompensate a place to a lower level of care Discharge Planning: To be determined Request Healthcare Surrogate/Guardian Advocate?: Yes (1) Unspecified psychosis Qualifiers: Psychosis type: schizophrenia Schizophrenia type: paranoid schizophrenia Qualified Code(s): F20.0 - Paranoid schizophrenia
[2018-05-11] MEDS: Acetaminophen 325 MG Tablet PO PRN (21:16)
[2018-05-12] MEDS: levETIRAcetam 250 MG Tablet PO SCH ×2 (06:12→17:44)
[2018-05-12] MEDS: Topiramate 25 MG Tablet PO SCH ×2 (09:06→21:22)
--- NOTE | 2018-05-12 11:37 | P.PNPSY ---
Subjective Remarks: Patient seen in day room with nurse Marissa and medical student Neeta, chart reviewed, patient compliant medication. Patient alert calm cooperative and pleasant with me she is somewhat confused with a fascia somewhat seeking but overall no problems showing some concern about finding appropriate placement Review of Systems All other systems reviewed negative except as stated in HPI Mental Status Examination Appearance: Disheveled (Improved) Consciousness: Alert Orientation: Person, Place, Date/Time Motor Activity: Other (No motor abnormalities noted) Speech: Hesitant (Improving) Language: Adequate Fund of Knowledge: Inadequate Attention and Concentration: Easily distracted Memory: Impaired Mood: Anxious Affect: Other (Decreased range and intensity) Thought Process & Associations: Tangential (Improving) Thought Content: Bizarre thinking (Decreasing) Hallucination Type: Auditory (Denies today of the regular continues occasional thought blocking) Delusion Type: Paranoid (Improved) Suicidal Ideation: No Suicidal Plan: No Suicidal Intention: No Homicidal Ideation: No Homicidal Plan: No Homicidal Intention: No (The) Insight: Poor Judgment: Poor Assessment and Plan - Assessment (1) Unspecified psychosis Code(s): F29 - Unspecified psychosis not due to a substance or known physiological condition Status: Acute - Plan Plan: Patient continues somewhat psychotic with thought blocking and aphasic compliant medications for now continue treatment Justification for Continued Inpatient Stay: At this time patient would decompensate a place to a lower level of care Discharge Planning: To be determined Request Healthcare Surrogate/Guardian Advocate?: Yes (1) Unspecified psychosis Qualifiers: Psychosis type: schizophrenia Schizophrenia type: paranoid schizophrenia Qualified Code(s): F20.0 - Paranoid schizophrenia
[2018-05-13] MEDS: levETIRAcetam 250 MG Tablet PO SCH ×2 (06:13→18:50)
[2018-05-13] MEDS: Topiramate 25 MG Tablet PO SCH ×2 (09:07→21:10)
--- NOTE | 2018-05-13 11:20 | P.PNPSY ---
Subjective Remarks: Reviewed electronic medical records and discussed case with staff. Follow-up was conducted in the milieu. Patient reports that she is been sleeping better. States that the Benadryl helps. Reports her appetite's been good. States that her mood is "a lot better". Denies having suicidal homicidal ideations denies side effects from the medications. Does express some concern over an argument she had with her "friend" right before she came in here. Mental Status Examination Appearance: Disheveled (Improved) Consciousness: Alert Orientation: Person, Place, Date/Time Motor Activity: Other (No motor abnormalities noted) Speech: Hesitant (Improving) Language: Adequate Fund of Knowledge: Inadequate Attention and Concentration: Easily distracted Memory: Impaired Mood: Anxious Affect: Other (Decreased range and intensity) Thought Process & Associations: Tangential (Improving) Thought Content: Bizarre thinking (Decreasing) Hallucination Type: Auditory (Denies today of the regular continues occasional thought blocking) Delusion Type: Paranoid (Improved) Suicidal Ideation: No Suicidal Plan: No Suicidal Intention: No Homicidal Ideation: No Homicidal Plan: No Homicidal Intention: No (The) Insight: Poor Judgment: Poor Assessment and Plan - Assessment (1) Unspecified psychosis Code(s): F29 - Unspecified psychosis not due to a substance or known physiological condition Status: Acute - Plan Plan: Patient will be reevaluated Tuesday by the attending psychiatrist. Continue with current treatment plan. Justification for Continued Inpatient Stay: Moving this patient to a less restrictive environment would likely result in decompensation. Request Healthcare Surrogate/Guardian Advocate?: Yes (1) Unspecified psychosis Qualifiers: Psychosis type: schizophrenia Schizophrenia type: paranoid schizophrenia Qualified Code(s): F20.0 - Paranoid schizophrenia
[2018-05-14] MEDS: levETIRAcetam 250 MG Tablet PO SCH (05:43)
[2018-05-14] MEDS: Topiramate 25 MG Tablet PO SCH ×2 (11:26→21:11)
--- NOTE | 2018-05-14 12:33 | P.PNPSY ---
Subjective Remarks: Reviewed electronic medical records and discussed case with staff. Follow-up was conducted in the day room. Patient reports that she slept better and her appetite's been better. Although she maintains that her mood is "getting better ". She seems to be struggling more with her expressive aphasia today and her affect is depressed. Mental Status Examination Appearance: Disheveled (Improved) Consciousness: Alert Orientation: Person, Place, Date/Time Motor Activity: Other (No motor abnormalities noted) Speech: Hesitant (Improving) Language: Adequate Fund of Knowledge: Inadequate Attention and Concentration: Easily distracted Memory: Impaired Mood: Anxious Affect: Other (Decreased range and intensity) Thought Process & Associations: Tangential (Improving) Thought Content: Bizarre thinking (Decreasing) Hallucination Type: Auditory (Denies today of the regular continues occasional thought blocking) Delusion Type: Paranoid (Improved) Suicidal Ideation: No Suicidal Plan: No Suicidal Intention: No Homicidal Ideation: No Homicidal Plan: No Homicidal Intention: No (The) Insight: Poor Judgment: Poor Assessment and Plan - Assessment (1) Unspecified psychosis Code(s): F29 - Unspecified psychosis not due to a substance or known physiological condition Status: Acute - Plan Plan: Patient will be reevaluated Tuesday by the attending psychiatrist. Continue with current treatment plan. Justification for Continued Inpatient Stay: Moving this patient to a less restrictive environment would likely result in decompensation. Request Healthcare Surrogate/Guardian Advocate?: Yes (1) Unspecified psychosis Qualifiers: Psychosis type: schizophrenia Schizophrenia type: paranoid schizophrenia Qualified Code(s): F20.0 - Paranoid schizophrenia
[2018-05-15] MEDS: Topiramate 25 MG Tablet PO SCH ×2 (08:17→20:05)
[2018-05-15] MEDS: levETIRAcetam 250 MG Tablet PO SCH ×2 (10:52→16:02)
--- NOTE | 2018-05-15 11:39 | P.PNPSY ---
Subjective Remarks: Patient seen in day room with medical student Neeta, chart reviewed, patient compliant medication. Patient continues calm cooperative no behavior problems the residual from the CVA continues with a fair amount of a aphasia and word seeking. Though she is calm considering that. Placement remains problematic. For now continue treatment Review of Systems All other systems reviewed negative except as stated in HPI Mental Status Examination Appearance: Disheveled (Improved) Consciousness: Alert Orientation: Person, Place, Date/Time Motor Activity: Other (No motor abnormalities noted) Speech: Hesitant (Improving) Language: Adequate Fund of Knowledge: Inadequate Attention and Concentration: Easily distracted Memory: Impaired Mood: Anxious Affect: Other (Decreased range and intensity) Thought Process & Associations: Tangential (Improving) Thought Content: Bizarre thinking (Decreasing) Hallucination Type: Auditory (Denies today of the regular continues occasional thought blocking) Delusion Type: Paranoid (Improved) Suicidal Ideation: No Suicidal Plan: No Suicidal Intention: No Homicidal Ideation: No Homicidal Plan: No Homicidal Intention: No (The) Insight: Poor Judgment: Poor Assessment and Plan - Assessment (1) Unspecified psychosis Code(s): F29 - Unspecified psychosis not due to a substance or known physiological condition Status: Acute - Plan Plan: Patient continues no behavioral problems. She continues a phasic, compliant medications. Placement remains problematic considering the reluctance of her family and her poor financial situation Justification for Continued Inpatient Stay: At this time patient would decompensate a place to a lower level of care Discharge Planning: To be determined Request Healthcare Surrogate/Guardian Advocate?: Yes (1) Unspecified psychosis Qualifiers: Psychosis type: schizophrenia Schizophrenia type: paranoid schizophrenia Qualified Code(s): F20.0 - Paranoid schizophrenia
[2018-05-16] MEDS: levETIRAcetam 250 MG Tablet PO SCH ×2 (04:46→17:02)
[2018-05-16] MEDS: Topiramate 25 MG Tablet PO SCH ×2 (08:38→20:18)
--- NOTE | 2018-05-16 08:55 | P.TTN ---
- Patient Problems Problems: 1. Discharge planning 2. Medication compliance 3. Knowledge deficit 4. Lack of coping skills - Progress Toward Goals Provider Present: Dr. Carmen Patricio Provider Input: 05/15: Pt is homeless, provide her with resources that she can call, possibly [place] placement, no behavioral issues. 05/10/18: Discuss discharge plans for possible placement. Pt is new to this MD; pt to be assessed today. Nurse(s) Present: Evy RN Nurse Input: 05/10/18: Appropriate with staff. Treatment cooperatie, med- compliant, calmer mood. Psychiatric Counselors Present: Tor Villalobos Jr., [facility], Other (Klaudia Atkinson) Psychiatric Therapist Input: 05/10/18: Cooperative, more talkative, needs more time. Pt is new to this therapist, assessment today. Group Spec/RT/OT/AGUILAR Present: LAUREN Maldonado, Caio Le, OT Group Spec/RT/OT/AGUILAR Input: 05/15: Pt attends most group activities appropriately, social with peers and staff. 05/10/18: Pt attends select group activities. Pt appears more social with peers. Pt has not attended groups since her admission to unit, she is a new pt over this weekend. Clinical Coordinator: Sandee Lopez [facility] - Discharge Plan Other 05/15: Pending placement for pt Pt is new, no current discharge plan has been formulated. - Documentation Scribe: Caio Le, MS, OTR Teaching Recipient: Patient
--- NOTE | 2018-05-16 10:02 | P.PNPSY ---
Subjective Remarks: Patient seen today in day room with medical student Neeta and medical student Elier. Chart reviewed. Patient continues with significant aphasia and word seeking however verbal expression shows fairly good goal direction. However there are issues related to placement concerning patient's financial stress. We need to explore options that range from a woman's group home to a more structured environment. It appears placement with some family members is probable. We will also increase Geodon to 40 mg twice daily Review of Systems All other systems reviewed negative except as stated in HPI Mental Status Examination Appearance: Disheveled (Improved) Consciousness: Alert Orientation: Person, Place, Date/Time Motor Activity: Other (No motor abnormalities noted) Speech: Hesitant (Improving though her word speaking with her aphasia is the same) Language: Adequate Fund of Knowledge: Inadequate Attention and Concentration: Easily distracted Memory: Impaired Mood: Anxious Affect: Other (Decreased range and intensity) Thought Process & Associations: Tangential (Improving) Thought Content: Bizarre thinking (Decreasing) Hallucination Type: Auditory (Denies today of the regular continues occasional thought blocking) Delusion Type: Paranoid (Improved) Suicidal Ideation: No Suicidal Plan: No Suicidal Intention: No Homicidal Ideation: No Homicidal Plan: No Homicidal Intention: No (The) Insight: Poor Judgment: Poor Assessment and Plan - Assessment (1) Unspecified psychosis Code(s): F29 - Unspecified psychosis not due to a substance or known physiological condition Status: Acute - Plan Plan: Patient calm cooperative though showing some mild anxiety when attempting to discuss placement alternatives. Need to continue working with patient and perhaps with family. She medication adjustment above Justification for Continued Inpatient Stay: At this time patient would decompensate if placed in a lower level of care Discharge Planning: To be determined Request Healthcare Surrogate/Guardian Advocate?: Yes (1) Unspecified psychosis Qualifiers: Psychosis type: schizophrenia Schizophrenia type: paranoid schizophrenia Qualified Code(s): F20.0 - Paranoid schizophrenia
[2018-05-17] MEDS: Topiramate 25 MG Tablet PO SCH (08:49)
--- NOTE | 2018-05-17 11:44 | P.PNPSY ---
Subjective Remarks: Patient seen today in the alatorre with nurse Laureen. Chart reviewed, patient compliant medication patient discussed with nurse. I apologized to patient for touching his shoulder. She explained to me that she does not like to be touched. Patient accepted my apology without problem. She also stated she felt better taking the Geodon at bedtime then right after her evening meal. I will change the dosage to meet that request also. Otherwise patient calm and pleasant with me her a fascia where she can continues without change Review of Systems All other systems reviewed negative except as stated in HPI Mental Status Examination Appearance: Appropriate, Disheveled (Improved) Consciousness: Alert Orientation: Person, Place, Date/Time Motor Activity: Other (No motor abnormalities noted) Speech: Hesitant (Improving though her word speaking with her aphasia is the same) Language: Adequate Fund of Knowledge: Inadequate Attention and Concentration: Easily distracted Memory: Impaired Mood: Anxious Affect: Other (Decreased range and intensity) Thought Process & Associations: Tangential (Improving) Thought Content: Bizarre thinking (Decreasing) Hallucination Type: Auditory (Denies today of the regular continues occasional thought blocking) Delusion Type: Paranoid (Improved) Suicidal Ideation: No Suicidal Plan: No Suicidal Intention: No Homicidal Ideation: No Homicidal Plan: No Homicidal Intention: No (The) Insight: Poor Judgment: Poor Assessment and Plan - Assessment (1) Unspecified psychosis Code(s): F29 - Unspecified psychosis not due to a substance or known physiological condition Status: Acute - Plan Plan: Patient remains somewhat vigilant irritable though somewhat calmer today with better coping. Able to process my apologies without difficulty. C medication adjustments above Justification for Continued Inpatient Stay: At this time patient may decompensate a place to a lower level of care Discharge Planning: To be determined Request Healthcare Surrogate/Guardian Advocate?: Yes (1) Unspecified psychosis Qualifiers: Psychosis type: schizophrenia Schizophrenia type: paranoid schizophrenia Qualified Code(s): F20.0 - Paranoid schizophrenia
[2018-05-17] MEDS: levETIRAcetam 250 MG Tablet PO SCH (16:34)
[2018-05-18] MEDS: Topiramate 25 MG Tablet PO SCH ×3 (01:14→20:26)
[2018-05-18] MEDS: levETIRAcetam 250 MG Tablet PO SCH ×2 (06:36→06:37)
--- NOTE | 2018-05-18 12:48 | P.TTN ---
- Patient Problems Problems: 1. Discharge planning 2. Medication compliance 3. Knowledge deficit 4. Lack of coping skills - Progress Toward Goals Provider Present: Dr. Carmen Patricio, Dr. Bay Le Provider Input: 05/17/18: Remain for further stabilization. needs placement. : Pt is homeless, provide her with resources that she can call, possibly [place] placement, no behavioral issues. 05/10/18: Discuss discharge plans for possible placement. Pt is new to this MD; pt to be assessed today. Nurse(s) Present: Monserrat CORONADO Nurse Input: 05/17/18: Appropriate with Staff. Treatment cooperative, Med compliant, Sleeps well. Paranoid. 05/10/18: Appropriate with staff. Treatment cooperatie, med-compliant, calmer mood. Psychiatric Counselors Present: MARCIE Liu, Other (Klaudia Atkinson) Psychiatric Therapist Input: 05/17/18: Needs safe discharge. 05/10/18: Cooperative, more talkative, needs more time. Pt is new to this therapist, assessment today. Group Spec/RT/OT/AGUILAR Present: DOMENICO Yancey, Caio Le, OT Group Spec/RT/OT/AGUILAR Input: 05/17/18: Pt attends the group activities. Pt isolates to self. Pt is pleasant and cooperative. 05/15: Pt attends most group activities appropriately, social with peers and staff. 05/10/18: Pt attends select group activities. Pt appears more social with peers. Pt has not attended groups since her admission to unit, she is a new pt over this weekend. Clinical Coordinator: MARCIE Kat - Discharge Plan Other 05/15: Pending placement for pt Pt is new, no current discharge plan has been formulated. - Documentation Scribe: Shahla Bach Teaching Recipient: Patient
--- NOTE | 2018-05-18 15:59 | P.PNPSY ---
Subjective Remarks: Patient seen today and alatorre with nurse maria eugenia and medical student Elier, chart reviewed, patient compliant medication. Patient somewhat more focused today though also somewhat more irritable. Asking if we talked her daughter. Getting angry will us when she realized with her also talking with her aunt. Patient became quite angry and walked away 1 week question her about her past history of mental illness. She denies any history of mental illness. Becoming more paranoid and angry. For now continue treatment placement remains problematic. Review of Systems All other systems reviewed negative except as stated in HPI Mental Status Examination Appearance: Appropriate, Disheveled (Improved) Consciousness: Alert Orientation: Person, Place, Date/Time Motor Activity: Other (No motor abnormalities noted) Speech: Hesitant (Improving though her word speaking with her aphasia is the same) Language: Adequate Fund of Knowledge: Inadequate Attention and Concentration: Easily distracted Memory: Impaired Mood: Angry, Anxious, Irritable Affect: Other (Slight increased range and intensity) Thought Process & Associations: Tangential (Improving) Thought Content: Bizarre thinking (Decreasing) Hallucination Type: Auditory (Denies today of the regular continues occasional thought blocking) Delusion Type: Paranoid (Improved) Suicidal Ideation: No Suicidal Plan: No Suicidal Intention: No Homicidal Ideation: No Homicidal Plan: No Homicidal Intention: No (The) Insight: Poor Judgment: Poor Assessment and Plan - Assessment (1) Unspecified psychosis Code(s): F29 - Unspecified psychosis not due to a substance or known physiological condition Status: Acute - Plan Plan: Patient is showing some increased paranoia and irritability today Justification for Continued Inpatient Stay: At this time patient would decompensate a place to a lower level of care Discharge Planning: To be determined placement may become problematic Request Healthcare Surrogate/Guardian Advocate?: Yes (1) Unspecified psychosis Qualifiers: Psychosis type: schizophrenia Schizophrenia type: paranoid schizophrenia Qualified Code(s): F20.0 - Paranoid schizophrenia
[2018-05-19] MEDS: levETIRAcetam 250 MG Tablet PO SCH (04:36)
[2018-05-19] MEDS: Topiramate 25 MG Tablet PO SCH ×2 (08:31→20:50)
--- NOTE | 2018-05-19 09:17 | P.PNPSY ---
Subjective Remarks: Patient seen in day room with nurse Naye, chart reviewed, patient compliant medication. Patient calm pleasant with me today most of them change in her speech or her aphasia. She does deny voices or visions and suicidality. Still somewhat vigilant about her personal space not wanting anybody to touch her. I did speak about discharge plans and somewhat of a generalization with her mother need to find appropriate placement. When I discussed more specifics yesterday she became quite angry denying any history of mental illness focusing on how much her aunt supposedly hates her. For now continue treatment Review of Systems All other systems reviewed negative except as stated in HPI Mental Status Examination Appearance: Appropriate, Disheveled (Improved) Consciousness: Alert Orientation: Person, Place, Date/Time Motor Activity: Other (No motor abnormalities noted) Speech: Hesitant (Improving though her word speaking with her aphasia is the same) Language: Adequate Fund of Knowledge: Inadequate Attention and Concentration: Easily distracted Memory: Impaired Mood: Angry, Anxious, Irritable Affect: Other (Slight increased range and intensity) Thought Process & Associations: Tangential (Improving) Thought Content: Bizarre thinking (Decreasing) Hallucination Type: Auditory (Denies today of the regular continues occasional thought blocking) Delusion Type: Paranoid (Improved) Suicidal Ideation: No Suicidal Plan: No Suicidal Intention: No Homicidal Ideation: No Homicidal Plan: No Homicidal Intention: No (The) Insight: Poor Judgment: Poor Assessment and Plan - Assessment (1) Unspecified psychosis Code(s): F29 - Unspecified psychosis not due to a substance or known physiological condition Status: Acute - Plan Plan: Patient remains guarded and vigilant. Though no behavior problems at this time. Placement remains somewhat problematic Justification for Continued Inpatient Stay: At this time patient would decompensate if not placed in an appropriate level of care Discharge Planning: To be determined Request Healthcare Surrogate/Guardian Advocate?: Yes (1) Unspecified psychosis Qualifiers: Psychosis type: schizophrenia Schizophrenia type: paranoid schizophrenia Qualified Code(s): F20.0 - Paranoid schizophrenia
[2018-05-20] MEDS: levETIRAcetam 250 MG Tablet PO SCH ×3 (05:03→16:04)
[2018-05-20] MEDS: Topiramate 25 MG Tablet PO SCH ×2 (08:23→20:36)
--- NOTE | 2018-05-20 11:19 | P.PNPSY ---
Subjective Remarks: Reviewed electronic medical records and discussed case with staff. Follow-up was conducted in patient's room. She was found sitting on the bed alert and oriented. She reports that she has been feeling depressed. She states that she hates "taking drugs". She says that she never takes them. She reports that , "I like the outdoors. I kayak for happy. I am bored out of my mind here." She states that she is sleeping okay and her appetite's been fine. Her affect is sad. Mental Status Examination Appearance: Appropriate, Disheveled (Improved) Consciousness: Alert Orientation: Person, Place, Date/Time Motor Activity: Other (No motor abnormalities noted) Speech: Hesitant (Improving though her word speaking with her aphasia is the same) Language: Adequate Fund of Knowledge: Inadequate Attention and Concentration: Easily distracted Memory: Impaired Mood: Angry, Anxious, Irritable Affect: Other (Slight increased range and intensity) Thought Process & Associations: Tangential (Improving) Thought Content: Bizarre thinking (Decreasing) Hallucination Type: Auditory (Denies today of the regular continues occasional thought blocking) Delusion Type: Paranoid (Improved) Suicidal Ideation: No Suicidal Plan: No Suicidal Intention: No Homicidal Ideation: No Homicidal Plan: No Homicidal Intention: No (The) Insight: Poor Judgment: Poor Assessment and Plan - Assessment (1) Unspecified psychosis Code(s): F29 - Unspecified psychosis not due to a substance or known physiological condition Status: Acute - Plan Plan: Patient will be reevaluated Tuesday by the attending psychiatrist. Continue with current treatment plan. Justification for Continued Inpatient Stay: Moving this patient to a less restrictive environment would likely result in decompensation. Request Healthcare Surrogate/Guardian Advocate?: Yes (1) Unspecified psychosis Qualifiers: Psychosis type: schizophrenia Schizophrenia type: paranoid schizophrenia Qualified Code(s): F20.0 - Paranoid schizophrenia
[2018-05-21] MEDS: levETIRAcetam 250 MG Tablet PO SCH ×2 (04:43→17:38)
--- NOTE | 2018-05-21 08:56 | P.PNPSY ---
Subjective Remarks: Reviewed electronic medical records and discussed case with staff. Follow-up was conducted in the day room, she is eating breakfast. Patient is cooperative. She is in a little distress and states, " no one tells me what is going on." She states that she does not want to live with her aunt and her aunt does not want her to return. She has four children: 22 year old daughter in [place], 28 year old son in [place], 31 year old daughter in [place]; and 27 year old son in [facility]. She feels that one of her children will take her in. She only has the phone number for one of her daughter's and feels like she has not been able to help herself. She was denied for SSI, but currently has an spiritual counselor, Cecil Franklin who is refilling for SSI. She states she has a brother in [place], but I was unable to determine the relationship she has with this sibling. Review of Systems All other systems reviewed negative except as stated in HPI Mental Status Examination Appearance: Appropriate, Disheveled (Improved) Consciousness: Alert Orientation: Person, Place, Date/Time Motor Activity: Other (No motor abnormalities noted) Speech: Hesitant (Improving though her word speaking with her aphasia is the same) Language: Adequate Fund of Knowledge: Inadequate Attention and Concentration: Easily distracted Memory: Impaired Mood: Angry, Anxious, Irritable Affect: Other (Slight increased range and intensity) Thought Process & Associations: Tangential (Improving) Thought Content: Bizarre thinking (Decreasing) Hallucination Type: Auditory (Denies today of the regular continues occasional thought blocking) Delusion Type: Paranoid (Improved) Suicidal Ideation: No Suicidal Plan: No Suicidal Intention: No Homicidal Ideation: No Homicidal Plan: No Homicidal Intention: No (The) Insight: Poor Judgment: Poor Assessment and Plan - Assessment (1) Unspecified psychosis Code(s): F29 - Unspecified psychosis not due to a substance or known physiological condition Status: Acute - Plan Plan: Patient will be reevaluated Tuesday by the attending psychiatrist. Continue with current treatment plan. Justification for Continued Inpatient Stay: Moving patient to a less restrictive environment may result in her decompensation. Request Healthcare Surrogate/Guardian Advocate?: Yes (1) Unspecified psychosis Qualifiers: Psychosis type: schizophrenia Schizophrenia type: paranoid schizophrenia Qualified Code(s): F20.0 - Paranoid schizophrenia
[2018-05-21] MEDS: Topiramate 25 MG Tablet PO SCH (09:15)
[2018-05-22] MEDS: levETIRAcetam 250 MG Tablet PO SCH ×2 (06:20→17:16)
[2018-05-22] MEDS: Topiramate 25 MG Tablet PO SCH ×3 (06:20→21:52)
--- NOTE | 2018-05-22 11:19 | P.PNPSY ---
Subjective Remarks: Patient seen in day room with floor staff, chart reviewed, patient compliant medication. Continues to look confused and irritable though no significant behavioral problems. Placement remains quite problematic. The patient today seems to be willing to consider going to an [facility]IDENT[facility]. Review of Systems All other systems reviewed negative except as stated in HPI Mental Status Examination Appearance: Appropriate, Disheveled (Improved) Consciousness: Alert Orientation: Person, Place, Date/Time Motor Activity: Other (No motor abnormalities noted) Speech: Hesitant (Improving though her word speaking with her aphasia is the same) Language: Adequate Fund of Knowledge: Inadequate Attention and Concentration: Easily distracted Memory: Impaired Mood: Angry, Anxious, Irritable Affect: Other (Slight increased range and intensity) Thought Process & Associations: Tangential (Improving) Thought Content: Bizarre thinking (Decreasing) Hallucination Type: Auditory (Denies today of the regular continues occasional thought blocking) Delusion Type: Paranoid (Improved) Suicidal Ideation: No Suicidal Plan: No Suicidal Intention: No Homicidal Ideation: No Homicidal Plan: No Homicidal Intention: No (The) Insight: Poor Judgment: Poor Assessment and Plan - Assessment (1) Unspecified psychosis Code(s): F29 - Unspecified psychosis not due to a substance or known physiological condition Status: Acute - Plan Plan: Patient remains somewhat vigilant also somewhat confused with her cognitive issues 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
--- NOTE | 2018-05-22 13:27 | P.TTN ---
- Patient Problems Problems: 1. Discharge planning 2. Medication compliance 3. Knowledge deficit 4. Lack of coping skills - Progress Toward Goals Provider Present: Dr. Carmen Patricio, Dr. Bay Le Provider Input: 05/22: Pt continues to have placement hurdles (lack of finances and insurance, lack of social supports, lack of substance or other abuse qualifiers). [facility]. 05/17/18: Remain for further stabilization. needs placement. 05/15: Pt is homeless, provide her with resources that she can call, possibly [place] placement, no behavioral issues. 05/10/18: Discuss discharge plans for possible placement. Pt is new to this MD; pt to be assessed today. Nurse(s) Present: Monserrat CORONADO Nurse Input: 05/17/18: Appropriate with Staff. Treatment cooperative, Med compliant, Sleeps well. Paranoid. 05/10/18: Appropriate with staff. Treatment cooperatie, med-compliant, calmer mood. Psychiatric Counselors Present: Shanthi Valdivia [facility], Other (Klaudia Atkinson) Psychiatric Therapist Input: 05/22: Pt remains in a vulnerable state, [facility] has been only viable opportunity based on pt qualifiers. 05/25: Needs safe discharge. 05/10/18: Cooperative, more talkative, needs more time. Pt is new to this therapist, assessment today. Group Spec/RT/OT/AGUILAR Present: Shahla Bach, [employer], Caio Le, OT Group Spec/RT/OT/AGUILAR Input: 05/22: Pt has been attending groups, she is appropriate, has cognitive processing delays but remains pleasant and engaged in group activities. 05/17/18: Pt attends the group activities. Pt isolates to self. Pt is pleasant and cooperative. 05/15: Pt attends most group activities appropriately, social with peers and staff. 05/10/18: Pt attends select group activities. Pt appears more social with peers. Pt has not attended groups since her admission to unit, she is a new pt over this weekend. Clinical Coordinator: Sandee Lopez [facility] Additional Input: 05/22: Pt continues to have placement hurdles (lack of finances and insurance, lack of social supports, lack of substance or other abuse qualifiers). Counselor is reaching out primarily to [facility] for [facility] - Discharge Plan Other 05/15: Pending placement for pt Pt is new, no current discharge plan has been formulated. - Documentation Scribe: Shahla Bach Teaching Recipient: Patient
[2018-05-23] MEDS: levETIRAcetam 250 MG Tablet PO SCH ×2 (06:31→17:11)
[2018-05-23] MEDS: Topiramate 25 MG Tablet PO SCH ×2 (09:14→22:12)
--- NOTE | 2018-05-23 11:49 | P.PNPSY ---
Subjective Remarks: Patient seen in her room with nurse Paulina, chart reviewed, patient compliant medication. Patient remains paranoid and vigilant delusional still feels her aunt's been poisoning her. Placement remains an issue. Will increase Geodon to 40 mg a.m. 80 mg at bedtime Review of Systems All other systems reviewed negative except as stated in HPI Mental Status Examination Appearance: Appropriate, Disheveled (Improved) Consciousness: Alert Orientation: Person, Place, Date/Time Motor Activity: Other (No motor abnormalities noted) Speech: Hesitant (Improving though her word speaking with her aphasia is the same) Language: Adequate Fund of Knowledge: Inadequate Attention and Concentration: Easily distracted Memory: Impaired Mood: Angry, Anxious, Irritable Affect: Other (Slight increased range and intensity) Thought Process & Associations: Tangential (Improving) Thought Content: Bizarre thinking (Decreasing) Hallucination Type: Auditory (Denies today of the regular continues occasional thought blocking) Delusion Type: Paranoid (Improved) Suicidal Ideation: No Suicidal Plan: No Suicidal Intention: No Homicidal Ideation: No Homicidal Plan: No Homicidal Intention: No (The) Insight: Poor Judgment: Poor Assessment and Plan - Assessment (1) Unspecified psychosis Code(s): F29 - Unspecified psychosis not due to a substance or known physiological condition Status: Acute - Plan Plan: Patient remained psychotic and delusional with vigilance and paranoia. Please see medication adjustments Justification for Continued Inpatient Stay: At this time patient would decompensate a place to a lower level of care Discharge Planning: To be determined Request Healthcare Surrogate/Guardian Advocate?: Yes (1) Unspecified psychosis Qualifiers: Psychosis type: schizophrenia Schizophrenia type: paranoid schizophrenia Qualified Code(s): F20.0 - Paranoid schizophrenia
[2018-05-24] MEDS: levETIRAcetam 250 MG Tablet PO SCH ×2 (06:20→18:44)
[2018-05-24] MEDS: Topiramate 25 MG Tablet PO SCH ×2 (09:16→21:37)
--- NOTE | 2018-05-24 12:33 | P.PNPSY ---
Subjective Remarks: Patient seen in her room with floor staff, chart reviewed, patient compliant medications. She denies suicidality voices or visions. There is still the mild word seeking but overall she is showing some slight increased focus. Patient scheduled for [facility] tomorrow. At this time if you should no longer meets Cory criteria will lift Ray act allow patient to sign voluntary. Placement still remains somewhat problematic Review of Systems All other systems reviewed negative except as stated in HPI Mental Status Examination Appearance: Appropriate, Disheveled (Improved) Consciousness: Alert Orientation: Person, Place, Date/Time Motor Activity: Other (No motor abnormalities noted) Speech: Hesitant (Improving though her word speaking with her aphasia is the same) Language: Adequate Fund of Knowledge: Inadequate Attention and Concentration: Easily distracted Memory: Impaired Mood: Angry, Anxious, Irritable Affect: Other (Slight increased range and intensity) Thought Process & Associations: Tangential (Improving) Thought Content: Bizarre thinking (Decreasing) Hallucination Type: Auditory (Denies today of the regular continues occasional thought blocking) Delusion Type: Paranoid (Improved) Suicidal Ideation: No Suicidal Plan: No Suicidal Intention: No Homicidal Ideation: No Homicidal Plan: No Homicidal Intention: No (The) Insight: Poor Judgment: Poor Assessment and Plan - Assessment (1) Unspecified psychosis Code(s): F29 - Unspecified psychosis not due to a substance or known physiological condition Status: Acute - Plan Plan: Patient somewhat calmer the a phasic were taking continues but is somewhat softer. At this time patient no longer meets Cory criteria will lift Ray act low patient signed voluntary. Placement remains problematic Justification for Continued Inpatient Stay: At this time patient may decompensate if not placed in an appropriate level of care Discharge Planning: To be determined Request Healthcare Surrogate/Guardian Advocate?: Yes (1) Unspecified psychosis Qualifiers: Psychosis type: schizophrenia Schizophrenia type: paranoid schizophrenia Qualified Code(s): F20.0 - Paranoid schizophrenia
[2018-05-25] MEDS: levETIRAcetam 250 MG Tablet PO SCH (06:21)
[2018-05-25] MEDS: Topiramate 25 MG Tablet PO SCH ×2 (09:15→20:20)
--- NOTE | 2018-05-25 11:37 | P.PNPSY ---
Subjective Remarks: Patient seen in day room with floor staff, chart reviewed, patient compliant medication. Patient is concerned about taking her p.m. Geodon at at bedtime. Would rather take it earlier in the evening. This is okay with me. While patient continues to show her if patient were seeking she is somewhat more fluent today than prior. She is aware of the fact that she may be placed in a woman's [facility] facility perhaps in [place]. She would be okay with that. She states she does have a daughter lives in [place]. Thus we will change Geodon to dinnertime Review of Systems All other systems reviewed negative except as stated in HPI Mental Status Examination Appearance: Appropriate, Disheveled (Improved) Consciousness: Alert Orientation: Person, Place, Date/Time Motor Activity: Other (No motor abnormalities noted) Speech: Hesitant (Improving though her word speaking with her aphasia is the same) Language: Adequate Fund of Knowledge: Inadequate Attention and Concentration: Easily distracted Memory: Impaired Mood: Angry, Anxious, Irritable Affect: Other (Slight increased range and intensity) Thought Process & Associations: Tangential (Improving) Thought Content: Bizarre thinking (Decreasing) Hallucination Type: Auditory (Denies today of the regular continues occasional thought blocking) Delusion Type: Paranoid (Improved) Suicidal Ideation: No Suicidal Plan: No Suicidal Intention: No Homicidal Ideation: No Homicidal Plan: No Homicidal Intention: No (The) Insight: Poor Judgment: Poor Assessment and Plan - Assessment (1) Unspecified psychosis Code(s): F29 - Unspecified psychosis not due to a substance or known physiological condition Status: Acute - Plan Plan: Patient somewhat calmer more focused today though still a phasic still showing some mild vigilance but she is Justification for Continued Inpatient Stay: At this time patient would decompensate a place to a lower level of care Discharge Planning: To be determined Request Healthcare Surrogate/Guardian Advocate?: Yes (1) Unspecified psychosis Qualifiers: Psychosis type: schizophrenia Schizophrenia type: paranoid schizophrenia Qualified Code(s): F20.0 - Paranoid schizophrenia
[2018-05-26] MEDS: levETIRAcetam 250 MG Tablet PO SCH ×3 (08:29→16:43)
[2018-05-26] MEDS: Topiramate 25 MG Tablet PO SCH ×2 (08:29→21:09)
--- NOTE | 2018-05-26 10:04 | P.PNPSY ---
Subjective Remarks: Patient seen and alatorre with floor staff, chart reviewed, patient continues compliant medication. She remains calm with me her word seeking and a aphasia continue though at times responses are goal oriented. She continues to friends over placement issues. It appears she may need to focus on the [facility] facility [facility]. Patient will be willing to go this since she has a daughter that lives in that area Review of Systems All other systems reviewed negative except as stated in HPI Mental Status Examination Appearance: Appropriate, Disheveled (Improved) Consciousness: Alert Orientation: Person, Place, Date/Time Motor Activity: Other (No motor abnormalities noted) Speech: Hesitant (Improving though her word speaking with her aphasia is the same) Language: Adequate Fund of Knowledge: Inadequate Attention and Concentration: Easily distracted Memory: Impaired Mood: Angry, Anxious, Irritable Affect: Other (Slight increased range and intensity) Thought Process & Associations: Tangential (Improving) Thought Content: Bizarre thinking (Decreasing) Hallucination Type: Auditory (Denies today of the regular continues occasional thought blocking) Delusion Type: Paranoid (Improved) Suicidal Ideation: No Suicidal Plan: No Suicidal Intention: No Homicidal Ideation: No Homicidal Plan: No Homicidal Intention: No (The) Insight: Poor Judgment: Poor Assessment and Plan - Assessment (1) Unspecified psychosis Code(s): F29 - Unspecified psychosis not due to a substance or known physiological condition Status: Acute - Plan Plan: Patient remains somewhat vigilant and guarded though calmer today. Her word seeking aphasia continue though she is showing some improvement in her speech. For now continue treatment Justification for Continued Inpatient Stay: At this time patient would decompensate a place to a lower level of care Discharge Planning: To be determined Request Healthcare Surrogate/Guardian Advocate?: Yes (1) Unspecified psychosis Qualifiers: Psychosis type: schizophrenia Schizophrenia type: paranoid schizophrenia Qualified Code(s): F20.0 - Paranoid schizophrenia
[2018-05-27] MEDS: levETIRAcetam 250 MG Tablet PO SCH ×2 (05:53→16:33)
[2018-05-27] MEDS: Topiramate 25 MG Tablet PO SCH ×2 (08:18→20:22)
--- NOTE | 2018-05-27 12:13 | P.PNPSY ---
Subjective Remarks: Pt seen and discussed with staff. Chart reviewed. She has been pacing hallways and engaging in disorganized behavior. She is compliant with medications and has not been agitated today. No SI/HI No medication side effects Mental Status Examination Appearance: Appropriate, Disheveled (Improved) Consciousness: Alert Orientation: Person, Place, Date/Time Motor Activity: Other (No motor abnormalities noted) Speech: Hesitant (Improving though her word speaking with her aphasia is the same) Language: Adequate Fund of Knowledge: Inadequate Attention and Concentration: Easily distracted Memory: Impaired Mood: Anxious Affect: Other (restricted) Thought Process & Associations: Tangential (Improving) Thought Content: Bizarre thinking (Decreasing) Hallucination Type: Auditory Delusion Type: Paranoid (Improved) Suicidal Ideation: No Suicidal Plan: No Suicidal Intention: No Homicidal Ideation: No Homicidal Plan: No Homicidal Intention: No (The) Insight: Poor Judgment: Poor Assessment and Plan - Assessment (1) Unspecified psychosis Code(s): F29 - Unspecified psychosis not due to a substance or known physiological condition Status: Acute - Plan Plan: Continue current tx plan Justification for Continued Inpatient Stay: impairments in reality testing Request Healthcare Surrogate/Guardian Advocate?: Yes (1) Unspecified psychosis Qualifiers: Psychosis type: schizophrenia Schizophrenia type: paranoid schizophrenia Qualified Code(s): F20.0 - Paranoid schizophrenia
[2018-05-28] MEDS: levETIRAcetam 250 MG Tablet PO SCH ×2 (05:53→16:07)
[2018-05-28] MEDS: Topiramate 25 MG Tablet PO SCH ×2 (08:27→21:20)
--- NOTE | 2018-05-28 08:56 | P.PNPSY ---
Subjective Remarks: Chart reviewed and discussed with nursing staff. Patient is pacing in the hallway. She has been cooperative , no behavioral concerns. Continues to seem disorganized. Eating and sleeping well. Denies SI/HI. Review of Systems All other systems reviewed negative except as stated in HPI Mental Status Examination Appearance: Appropriate, Disheveled (Improved) Consciousness: Alert Orientation: Person, Place, Date/Time Motor Activity: Other (No motor abnormalities noted) Speech: Hesitant (Improving though her word speaking with her aphasia is the same) Language: Adequate Fund of Knowledge: Inadequate Attention and Concentration: Easily distracted Memory: Impaired Mood: Anxious Affect: Other (restricted) Thought Process & Associations: Tangential (Improving) Thought Content: Bizarre thinking (Decreasing) Hallucination Type: Auditory Delusion Type: Paranoid (Improved) Suicidal Ideation: No Suicidal Plan: No Suicidal Intention: No Homicidal Ideation: No Homicidal Plan: No Homicidal Intention: No (The) Insight: Poor Judgment: Poor Assessment and Plan - Assessment (1) Unspecified psychosis Code(s): F29 - Unspecified psychosis not due to a substance or known physiological condition Status: Acute - Plan Plan: Continue current tx plan Justification for Continued Inpatient Stay: Moving patient to a less restrictive environment may result in her decompensation. Request Healthcare Surrogate/Guardian Advocate?: Yes (1) Unspecified psychosis Qualifiers: Psychosis type: schizophrenia Schizophrenia type: paranoid schizophrenia Qualified Code(s): F20.0 - Paranoid schizophrenia
[2018-05-29] MEDS: levETIRAcetam 250 MG Tablet PO SCH ×2 (05:14→16:46)
[2018-05-29] MEDS: Topiramate 25 MG Tablet PO SCH ×2 (08:11→20:32)
--- NOTE | 2018-05-29 09:37 | P.PNPSY ---
Subjective Remarks: Patient seen with nurse Mariela. Nurses notes reviewed. Nurses report she continues to present disorganized thoughts, episodes of restlessness AEB by pacing. Refuses PRN offered. Seeping well and eating well.Did take Benadryl and reports it helped with sleep. Patient tells me she is anxious over placement as well as over upcoming SSI determination. Review of Systems All other systems reviewed negative except as stated in HPI Mental Status Examination Appearance: Appropriate, Disheveled (Improved) Consciousness: Alert Orientation: Person, Place, Date/Time Motor Activity: Other (No motor abnormalities noted) Speech: Hesitant (Improving though her word speaking with her aphasia is the same) Language: Adequate Fund of Knowledge: Inadequate Attention and Concentration: Adequate, Easily distracted Memory: Impaired Mood: Anxious Affect: Anxious, Other (restricted) Thought Process & Associations: Intact, Tangential (Improving) Thought Content: Bizarre thinking (Not evident during this visit) Hallucination Type: Auditory Delusion Type: Paranoid (Improved) Suicidal Ideation: No Suicidal Plan: No Suicidal Intention: No Homicidal Ideation: No Homicidal Plan: No Homicidal Intention: No (The) Insight: Poor Judgment: Poor Assessment and Plan - Assessment (1) Unspecified psychosis Code(s): F29 - Unspecified psychosis not due to a substance or known physiological condition Status: Acute - Plan Plan: Continue to teach and encourage medication to manage anxiety. Continue with current tx plan. Justification for Continued Inpatient Stay: Patient at risk of decompensation at lower level of care. Request Healthcare Surrogate/Guardian Advocate?: Yes (1) Unspecified psychosis Qualifiers: Psychosis type: schizophrenia Schizophrenia type: paranoid schizophrenia Qualified Code(s): F20.0 - Paranoid schizophrenia
[2018-05-30] MEDS: levETIRAcetam 250 MG Tablet PO SCH ×2 (05:49→16:55)
[2018-05-30] MEDS: Topiramate 25 MG Tablet PO SCH ×2 (08:38→21:14)
--- NOTE | 2018-05-30 16:17 | P.PNPSY ---
Subjective Remarks: Patient seen for follow-up, chart reviewed. Discussion with nursing staff reported that patient met compliant noted with speech impairment likely secondary to residual sequelae from previous stroke, noted to be, cooperative with interview today. Patient was found heavily on the unit. Patient states that she is feeling "good" stating that her sleep has been poor and has been awake since 1 AM and stated that she is just thinking about her children. She mentions that prior to her admission she had a history where she believes that codeine made her want to kill anyone as well as blood patient was initiated with Topamax and was feeling "evil". She stated endocrine concerned about her kidney functions recently and had gone to several ER to address how she was feeling was discharged several times which patient had written a note stating "Ray act me or I will take all of my pills". Patient denied any suicidal homicidal ideation since admission and states that she has been feeling fine and planning on finding support with her sister Wendy Diez ([phone]). Review of Systems All other systems reviewed negative except as stated in HPI Mental Status Examination Appearance: Appropriate, Disheveled (Improved) Consciousness: Alert Orientation: Person, Place, Date/Time Motor Activity: Other (No motor abnormalities noted) Speech: Hesitant (Improving though her word speaking with her aphasia is the same) Language: Adequate Fund of Knowledge: Inadequate Attention and Concentration: Adequate, Easily distracted Memory: Impaired Mood: Anxious Affect: Anxious Thought Process & Associations: Intact, Tangential (Improving) Thought Content: Bizarre thinking (Not evident during this visit) Hallucination Type: Auditory (Denies) Delusion Type: Paranoid (Improved) Suicidal Ideation: No Suicidal Plan: No Suicidal Intention: No Homicidal Ideation: No Homicidal Plan: No Homicidal Intention: No (The) Insight: Poor Judgment: Poor Assessment and Plan - Assessment (1) Unspecified psychosis Code(s): F29 - Unspecified psychosis not due to a substance or known physiological condition Status: Acute - Plan Plan: Patient this time reports mood has improved, denying any suicidal homicidal ideations. Patient states that she is planning on finding support with her sister Ivana Diez. We will continue current treatment. Will change diphenhydramine to scheduled to improve sleep disturbance. We will continue to monitor mood and behavior. Discharge planning in progress. Justification for Continued Inpatient Stay: At risk of further decompensation at lower level care. Request Healthcare Surrogate/Guardian Advocate?: Yes (1) Unspecified psychosis Qualifiers: Psychosis type: schizophrenia Schizophrenia type: paranoid schizophrenia Qualified Code(s): F20.0 - Paranoid schizophrenia
[2018-05-31] MEDS: levETIRAcetam 250 MG Tablet PO SCH ×2 (05:44→16:59)
[2018-05-31] MEDS: Topiramate 25 MG Tablet PO SCH ×2 (09:22→21:11)
--- NOTE | 2018-05-31 14:05 | P.TTN ---
- Patient Problems Problems: 1. Discharge planning 2. Medication compliance 3. Knowledge deficit 4. Lack of coping skills - Progress Toward Goals Provider Present: Dr. Carmen Patricio, Dr. Bay Le Provider Input: 05/31/2018:Per doctor patient medications are stable, she require a safe dc. 05/22: Pt continues to have placement hurdles (lack of finances and insurance, lack of social supports, lack of substance or other abuse qualifiers). [facility]. 05/17/18: Remain for further stabilization. needs placement. 05/15: Pt is homeless, provide her with resources that she can call, possibly [facility] placement, no behavioral issues. 05/10/18: Discuss discharge plans for possible placement. Pt is new to this MD; pt to be assessed today. Nurse(s) Present: RN Nurse Input: 05/31/2018: per RN patient has no behavior, coopertative,and compliant with treatment. 05/17/18: Appropriate with Staff. Treatment cooperative, Med compliant, Sleeps well. Paranoid. 05/10/18: Appropriate with staff. Treatment cooperatie, med-compliant, calmer mood. Psychiatric Counselors Present: Shanthi Valdivia, [facility], Other (Klaudia Atkinson) Psychiatric Therapist Input: 05/31/2018: counselor spoke with Christy Gannon, patient's aunt who reports she can not allow patient to return to her home due to her behavior; patient will be given the information for [facility]. 05/22: Pt remains in a vulnerable state, [facility] has been only viable opportunity based on pt qualifiers. 05/25: Needs safe discharge. 05/10/18: Cooperative, more talkative, needs more time. Pt is new to this therapist, assessment today. Group Spec/RT/OT/AGUILAR Present: DOMENICO Yancey, LAUREN Maldonado, Caio Le, OT Group Spec/RT/OT/AGUILAR Input: 05/31/2018 per RT patient has been socialable, and engage with peers. 05/22: Pt has been attending groups, she is appropriate, has cognitive processing delays but remains pleasant and engaged in group activities. 05/17/18: Pt attends the group activities. Pt isolates to self. Pt is pleasant and cooperative. 05/15: Pt attends most group activities appropriately, social with peers and staff. 05/10/18: Pt attends select group activities. Pt appears more social with peers. Pt has not attended groups since her admission to unit, she is a new pt over this weekend. Clinical Coordinator: Sandee Lopez [facility] Additional Input: 05/22: Pt continues to have placement hurdles (lack of finances and insurance, lack of social supports, lack of substance or other abuse qualifiers). Counselor is reaching out primarily to [facility] for placement - Discharge Plan Other 05/15: Pending placement for pt Pt is new, no current discharge plan has been formulated. - Documentation Scribe: Shahla Bach Teaching Recipient: Patient
--- NOTE | 2018-05-31 22:03 | P.PNPSY ---
Subjective Remarks: Patient seen for follow-up, chart reviewed. Discussion with nursing staff reported that patient reports feeling okay compliant with medication and slept. Patient was found ambulating on unit noted B, cooperative. Patient states she is feeling "anxious" stating that she will be lost if discharged to the [facility]. She is aware that there are no family members willing to provide any support and states that she last spoke with her daughter that also lives in [place] in April of this year. She mentions previously living with her aunt prior to this admission and was wanting to explore returning back there. She states that her children wants her to return back with her aunt. She denies any perceptional services states feeling somewhat depressed "I am facing the streets". Patient denies any suicide ideations. Review of Systems All other systems reviewed negative except as stated in HPI Mental Status Examination Appearance: Appropriate Consciousness: Alert Orientation: Person, Place, Date/Time Motor Activity: Other (No motor abnormalities noted) Speech: Hesitant (Improving though her word speaking with her aphasia is the same) Language: Adequate Fund of Knowledge: Inadequate Attention and Concentration: Adequate, Easily distracted Memory: Impaired Mood: Anxious Affect: Anxious Thought Process & Associations: Intact Thought Content: Appropriate Hallucination Type: None Delusion Type: Paranoid (Improved) Suicidal Ideation: No Suicidal Plan: No Suicidal Intention: No Homicidal Ideation: No Homicidal Plan: No Homicidal Intention: No (The) Insight: Poor Judgment: Poor Assessment and Plan - Assessment (1) Unspecified psychosis Code(s): F29 - Unspecified psychosis not due to a substance or known physiological condition Status: Acute - Plan Plan: Patient this time noted with improved mood although anxious and worried about being discharged to a [facility] penit[facility] as she has never been in a penitentiary prior. We will explore possibility of patient returning to her aunt's home and she was living there previous to this admission. We will continue current treatment. Continue to monitor mood and behavior. Discharge planning a progress. Justification for Continued Inpatient Stay: At risk of further decompensation at lower level care. Request Healthcare Surrogate/Guardian Advocate?: Yes (1) Unspecified psychosis Qualifiers: Psychosis type: schizophrenia Schizophrenia type: paranoid schizophrenia Qualified Code(s): F20.0 - Paranoid schizophrenia
[2018-06-01] MEDS: levETIRAcetam 250 MG Tablet PO SCH ×2 (06:19→16:49)
[2018-06-01] MEDS: Topiramate 25 MG Tablet PO SCH ×2 (09:37→20:53)
--- NOTE | 2018-06-01 14:47 | P.PNPSY ---
Subjective Remarks: Patient was seen and case discussed with nursing. Patient is pleasant and cooperative with exam. However, she remains tangential and at times loose. She is compliant with her medications and tolerating it well. Going to groups. Mental Status Examination Appearance: Appropriate Consciousness: Alert Orientation: Person, Place, Date/Time Motor Activity: Other (No motor abnormalities noted) Speech: Hesitant (Improving though her word speaking with her aphasia is the same) Language: Adequate Fund of Knowledge: Inadequate Attention and Concentration: Adequate, Easily distracted Memory: Impaired Mood: Anxious Affect: Anxious Thought Process & Associations: Intact Thought Content: Appropriate Hallucination Type: None Delusion Type: Paranoid (Improved) Suicidal Ideation: No Suicidal Plan: No Suicidal Intention: No Homicidal Ideation: No Homicidal Plan: No Homicidal Intention: No (The) Insight: Poor Judgment: Poor Assessment and Plan - Assessment (1) Unspecified psychosis Code(s): F29 - Unspecified psychosis not due to a substance or known physiological condition Status: Acute - Plan Plan: Continue current treatment plan Justification for Continued Inpatient Stay: Patient would decompensate in a less restrictive setting Request Healthcare Surrogate/Guardian Advocate?: Yes (1) Unspecified psychosis Qualifiers: Psychosis type: schizophrenia Schizophrenia type: paranoid schizophrenia Qualified Code(s): F20.0 - Paranoid schizophrenia
[2018-06-02] MEDS: levETIRAcetam 250 MG Tablet PO SCH ×2 (06:02→16:51)
[2018-06-02] MEDS: Topiramate 25 MG Tablet PO SCH ×2 (11:30→21:30)
--- NOTE | 2018-06-02 22:12 | P.PNPSY ---
Subjective Remarks: Patient seen for follow up; chart reviewed. Discussion with nursing staff reported that patient feeling better, attending groups, noted be somewhat irritable. Patient was found ambulating on the unit she states she is attending groups, and concern about her belongings that were left in her aunt's home as she was previously living there. Patient was notified the patient may not return back to the aunt's home and will explore [facility] which she is requesting to be near "[place]" and she states she has family there. Patient states she has no social security income but is on food stamps. She states feeling scared and upset that her children are refusing to help her at this time. Patient denies any suicidal homicidal ideations, denies any perceptional disturbances. Review of Systems All other systems reviewed negative except as stated in HPI Mental Status Examination Appearance: Appropriate Consciousness: Alert Orientation: Person, Place, Date/Time Motor Activity: Other (No motor abnormalities noted) Speech: Hesitant (Improving though her word speaking with her aphasia is the same) Language: Adequate Fund of Knowledge: Inadequate Attention and Concentration: Adequate, Easily distracted Memory: Impaired Mood: Anxious Affect: Anxious Thought Process & Associations: Intact Thought Content: Appropriate Hallucination Type: None Delusion Type: Paranoid (Improved) Suicidal Ideation: No Suicidal Plan: No Suicidal Intention: No Homicidal Ideation: No Homicidal Plan: No Homicidal Intention: No (The) Insight: Poor Judgment: Poor Assessment and Plan - Assessment (1) Unspecified psychosis Code(s): F29 - Unspecified psychosis not due to a substance or known physiological condition Status: Acute - Plan Plan: Patient this time noted to be anxious due to on clear discharge plan this patient may not return back to her aunt's home. We will continue current treatment. We will continue to monitor mood and behavior. Treatment team to continue to explore options of safe discharge planning. Discharge planning in progress. Justification for Continued Inpatient Stay: At risk of further decompensation at lower level care. Request Healthcare Surrogate/Guardian Advocate?: Yes (1) Unspecified psychosis Qualifiers: Psychosis type: schizophrenia Schizophrenia type: paranoid schizophrenia Qualified Code(s): F20.0 - Paranoid schizophrenia
[2018-06-03] MEDS: levETIRAcetam 250 MG Tablet PO SCH ×2 (06:29→16:19)
[2018-06-03] MEDS: Topiramate 25 MG Tablet PO SCH ×2 (08:44→21:02)
--- NOTE | 2018-06-03 11:22 | P.PNPSY ---
Subjective Remarks: Patient seen and examined in weekend coverage for Dr. Le. Chart reviewed. Case discussed with nursing staff. On my examination today, the patient is perseverative on possible discharge plan [facility]. She says "my kids do not want me. I do not know why. I was a good mom." She denies any suicidal or homicidal ideation but says "if I am on the streets, I probably will ." She says that she may have a TIA and as a result of this by some mechanism if she is discharged to a homeless [facility]. Affect is somewhat irritable. Somewhat passive aggressive. No psychotic material. No side effects from medications. No acute physical complaints. Vital Signs Temp Pulse Resp BP Pulse Ox 06/03/18 06:00 98.6 F 71 18 122/59 L 96 06/02/18 18:54 98.7 F 93 H 14 148/79 H 95 Intake and Output 06/02/18 06/03/18 06/03/18 22:59 06:59 14:59 Intake Total 1060 / 1060 240 / 240 Balance 1060 / 1060 240 / 240 Intake: Oral 1060 / 1060 240 / 240 Other: # Voids 3 Date of Last Bowel Movement 06/01/18 Labs reviewed. Review of Systems All other systems reviewed negative except as stated in HPI Mental Status Examination Appearance: Appropriate Consciousness: Alert Orientation: Person, Place (At least) Motor Activity: Other (No abnormal motor movements noted) Speech: Other (Mild dysarthria, reported history of stroke) Language: Adequate Attention and Concentration: Adequate Memory: Unremarkable (Grossly intact on clinical exam) Mood: Oppositional Affect: Irritable (Mild) Thought Process & Associations: Intact Thought Content: Appropriate Hallucination Type: None Delusion Type: None Suicidal Ideation: No Suicidal Plan: No Suicidal Intention: No Homicidal Ideation: No Homicidal Plan: No Homicidal Intention: No Insight: Poor Judgment: Poor Assessment and Plan - Assessment (1) Unspecified psychosis Code(s): F29 - Unspecified psychosis not due to a substance or known physiological condition Status: Acute - Plan Plan: Continue Geodon as ordered. I will check a BMP to follow-up on hypokalemia and decreased GFR noted on BMP obtained earlier in the hospital stay. Continue other medications and care as ordered. Continue to monitor on the inpatient unit. Justification for Continued Inpatient Stay: Risk for decompensation Discharge Planning: Per Dr. Le Request Healthcare Surrogate/Guardian Advocate?: Yes (1) Unspecified psychosis Qualifiers: Psychosis type: schizophrenia Schizophrenia type: paranoid schizophrenia Qualified Code(s): F20.0 - Paranoid schizophrenia
[2018-06-03 14:35] LABS: Calcium 8.7 mg/dL (8.5-10.1); Carbon Dioxide 24.9 meq/L (21.0-32.0)
[2018-06-04] MEDS: levETIRAcetam 250 MG Tablet PO SCH ×2 (04:51→16:08)
[2018-06-04] MEDS: Topiramate 25 MG Tablet PO SCH ×2 (08:15→21:42)
[2018-06-04 10:32] LABS: Calcium 8.8 mg/dL (8.5-10.1); Carbon Dioxide 23.8 meq/L (21.0-32.0); Potassium 3.4 meq/L (3.5-5.1)
--- NOTE | 2018-06-04 14:26 | P.PNPSY ---
Subjective Remarks: Chart reviewed and discussed with nursing staff. Patient in common area eating breakfast. She is anxious to see a provider as she wants details about her discharge plan. She states that her aunt and daughter do not want to take her back and that [facility] working to find her a [facility]itent[facility]. She was redirected and continued to eat breakfast. Staff noted that she is cooperative. She eats and sleeps well. No behavioral concerns. Review of Systems All other systems reviewed negative except as stated in HPI Mental Status Examination Appearance: Appropriate Consciousness: Alert Orientation: Person, Place (At least) Motor Activity: Other (No abnormal motor movements noted) Speech: Other (Mild dysarthria, reported history of stroke) Language: Adequate Fund of Knowledge: Inadequate Attention and Concentration: Adequate Memory: Unremarkable (Grossly intact on clinical exam) Mood: Oppositional Affect: Irritable (Mild) Thought Process & Associations: Intact Thought Content: Appropriate Hallucination Type: None Delusion Type: None Suicidal Ideation: No Suicidal Plan: No Suicidal Intention: No Homicidal Ideation: No Homicidal Plan: No Homicidal Intention: No Insight: Poor Judgment: Poor Assessment and Plan - Assessment (1) Unspecified psychosis Code(s): F29 - Unspecified psychosis not due to a substance or known physiological condition Status: Acute - Plan Plan: Continue current treatment plan. Justification for Continued Inpatient Stay: Moving patient to a less restrictive environment may result in her decompensation. Request Healthcare Surrogate/Guardian Advocate?: Yes (1) Unspecified psychosis Qualifiers: Psychosis type: schizophrenia Schizophrenia type: paranoid schizophrenia Qualified Code(s): F20.0 - Paranoid schizophrenia
--- NOTE | 2018-06-04 16:15 | P.PN ---
Subjective Interval history: Patient seen in room. Not particularly communicative mostly wants to talk about why nobody "wants her". Nursing denies any particularly manic behavior. Physical Exam Vital signs: Vital Signs 06/03/18 17:05 06/04/18 06:00 Temperature 98.8 F 97.5 F L Pulse Rate 88 73 Respiratory Rate 18 18 Blood Pressure 119/58 L 141/74 H Pulse Oximetry 96 98 Intake & Output 06/03/18 06/04/18 06/04/18 18:59 06:59 18:59 Intake Total 1320 / 1320 360 / 360 Balance 1320 / 1320 360 / 360 Intake: Oral 1320 / 1320 360 / 360 Other: # Voids 2 Narrative: GENERAL: Well-nourished, well-developed adult female in no obvious distress. SKIN: Warm and dry. HEAD: Atraumatic. Normocephalic. CARDIOVASCULAR: Regular rate and rhythm. RESPIRATORY: No accessory muscle use. Clear to auscultation. Breath sounds equal bilaterally. GASTROINTESTINAL: Abdomen soft, non-tender, non-distended. Positive bowel sounds. MUSCULOSKELETAL: Extremities without clubbing, cyanosis, or edema. No obvious deformities. Results - Labs CBC & Chem 7: 06/04/18 08:35 Laboratory Results - last 24 hr 06/04/18 08:35 Sodium 141 Potassium 3.4 L Chloride 108 H Carbon Dioxide 23.8 Anion Gap 9 BUN 20 H Creatinine 1.14 H Estimated GFR 51 L Random Glucose 128 H Calcium 8.8 Assessment and Plan - Plan Patient is a 47-year-old female with past medical history of CVA, TIA, polycystic disease of the kidneys and liver who initially came in to [facility] for complaints of abdominal pain. Patient made a statement of hurting herself by taking pills as per report. She is now Ray acted and transferred to inpatient psychiatry unit for further evaluation. Consulted for assistance with elevated creatinine. Psychosis, paranoia, suicidal ideation -Managed by psychiatry team -Continues to be reclusive, refusing medications. Elevated creatinine; electrolyte imbalance -Encourage fluids -Mild hypokalemia-p.o. replacement ordered -Monitor labs Polycystic kidney disease -Review of ultrasound of the kidneys from [facility] showed polycystic kidney disease which was seen before without hydronephrosis. -Avoid nephrotoxins -Monitor renal indicis intermittently DVT prop ambulatory Full code Discussed with patient, nursing
[2018-06-05] MEDS: levETIRAcetam 250 MG Tablet PO SCH ×2 (05:56→20:51)
[2018-06-05 07:25] LABS: Calcium 8.6 mg/dL (8.5-10.1); Carbon Dioxide 23.9 meq/L (21.0-32.0); Magnesium 1.9 mg/dL (1.5-2.5)
[2018-06-05] MEDS: Topiramate 25 MG Tablet PO SCH ×2 (09:40→20:45)
--- NOTE | 2018-06-05 11:25 | P.PN ---
Subjective Interval history: Patient is seen outside of room. She tells me that she is doing well. No chest pain or shortness of breath. No nausea vomiting or diarrhea. No fever or chills. She has been getting plenty to drink and feels well hydrated. Nursing reports no adverse events Physical Exam Vital signs: Vital Signs 06/04/18 18:11 06/05/18 05:49 Temperature 99.0 F 97.8 F Pulse Rate 74 74 Respiratory Rate 18 17 Blood Pressure 149/85 H 117/57 L Pulse Oximetry 95 97 Intake & Output 06/04/18 06/05/18 06/05/18 18:59 06:59 18:59 Intake Total 1500 / 1500 200 / 200 Balance 1500 / 1500 200 / 200 Intake: Oral 1500 / 1500 200 / 200 Other: # Voids 4 Date of Last Bowel Movement 06/01/18 Narrative: GENERAL: Well-nourished, well-developed adult female in no obvious distress. SKIN: Warm and dry. HEAD: Atraumatic. Normocephalic. CARDIOVASCULAR: Regular rate and rhythm. RESPIRATORY: No accessory muscle use. Clear to auscultation. Breath sounds equal bilaterally. GASTROINTESTINAL: Abdomen soft, non-tender, non-distended. Positive bowel sounds. MUSCULOSKELETAL: Extremities without clubbing, cyanosis, or edema. No obvious deformities. Results - Labs CBC & Chem 7: 06/05/18 05:36 Laboratory Results - last 24 hr 06/05/18 05:36 Sodium 143 Potassium 4.0 Chloride 111 H Carbon Dioxide 23.9 Anion Gap 8 BUN 18 Creatinine 1.06 H Estimated GFR 55 L Random Glucose 81 Calcium 8.6 Magnesium 1.9 Total Creatine Kinase 119 Assessment and Plan - Plan Patient is a 47-year-old female with past medical history of CVA, TIA, polycystic disease of the kidneys and liver who initially came in to [facility] for complaints of abdominal pain. Patient made a statement of hurting herself by taking pills as per report. She is now Ray acted and transferred to inpatient psychiatry unit for further evaluation. Consulted for assistance with elevated creatinine. Psychosis, paranoia, suicidal ideation -Managed by psychiatry team -Continues to be reclusive, refusing medications. Elevated creatinine; electrolyte imbalance -Encourage fluids -Mild hypokalemia-p.o. replacement ordered; resolved -Monitor labs Polycystic kidney disease -Review of ultrasound of the kidneys from [facility] showed polycystic kidney disease which was seen before without hydronephrosis. -Avoid nephrotoxins -Monitor renal indicis intermittently DVT prop ambulatory Full code Discussed with patient, nursing Patient appears to be medically stable at this point. Hospitalist service will sign off. Please reconsult if needed.
--- NOTE | 2018-06-05 20:18 | P.PNPSY ---
Subjective Remarks: Patient seen for follow-up, chart reviewed. Discussion with nursing staff reported that patient patient attending groups compliant medication denying suicide ideations. Patient was found ambulating on the unit noted B, cooperative. Patient states that her weekend was stressful due to her worry about her discharge planning stating that she is currently homeless. Patient reports her mood has been better denying any suicidal or homicidal ideations. Patient denies any perceptional disturbances or delusions at this time. Patient provides a list of contacts whom a possible family or friends whom she can stay with which will be explored. Review of Systems All other systems reviewed negative except as stated in HPI Mental Status Examination Appearance: Appropriate Consciousness: Alert Orientation: Person, Place, Date/Time Motor Activity: Other (No motor abnormalities noted) Speech: Hesitant (Improving though her word speaking with her aphasia is the same) Language: Adequate Fund of Knowledge: Inadequate Attention and Concentration: Adequate, Easily distracted Memory: Impaired Mood: Anxious Affect: Anxious Thought Process & Associations: Intact Thought Content: Appropriate Hallucination Type: None Delusion Type: None Suicidal Ideation: No Suicidal Plan: No Suicidal Intention: No Homicidal Ideation: No Homicidal Plan: No Homicidal Intention: No Insight: Fair Judgment: Impulsive Assessment and Plan - Assessment (1) Unspecified psychosis Code(s): F29 - Unspecified psychosis not due to a substance or known physiological condition Status: Acute - Plan Plan: Patient with improvement in mood denying any perceptional services denies any suicidal homicidal ideations. We will continue current treatment. Treatment team currently exploring options of having patient discharged to family or friends. Continue to monitor mood and behavior. Discharge planning in progress. Justification for Continued Inpatient Stay: Patient appears at risk of further decompensation at lower level care. Request Healthcare Surrogate/Guardian Advocate?: Yes (1) Unspecified psychosis Qualifiers: Psychosis type: schizophrenia Schizophrenia type: paranoid schizophrenia Qualified Code(s): F20.0 - Paranoid schizophrenia
[2018-06-06] MEDS: levETIRAcetam 250 MG Tablet PO SCH ×2 (05:24→16:18)
[2018-06-06] MEDS: Topiramate 25 MG Tablet PO SCH ×2 (09:29→20:46)
--- NOTE | 2018-06-06 12:16 | P.PNPSY ---
Subjective Remarks: Reviewed electronic medical records and discussed case with staff. Follow-up was conducted in the hallway with CLIFF German present. Patient reports that she is feeling "anxious". States it is in relation to her discharge plan. States that she was "up and down" last night when attempting to sleep. Reports her appetite's been okay when asked how she feels she states "hopeful but still anxious". She denies any side effects from the medication. She is looking forward to being discharged once a safe plan is identified. Mental Status Examination Appearance: Appropriate Consciousness: Alert Orientation: Person, Place, Date/Time Motor Activity: Other (No motor abnormalities noted) Speech: Hesitant (Improving though her word speaking with her aphasia is the same) Language: Adequate Fund of Knowledge: Inadequate Attention and Concentration: Adequate, Easily distracted Memory: Impaired Mood: Anxious Affect: Anxious Thought Process & Associations: Intact Thought Content: Appropriate Hallucination Type: None Delusion Type: None Suicidal Ideation: No Suicidal Plan: No Suicidal Intention: No Homicidal Ideation: No Homicidal Plan: No Homicidal Intention: No Insight: Fair Judgment: Impulsive Assessment and Plan - Assessment (1) Unspecified psychosis Code(s): F29 - Unspecified psychosis not due to a substance or known physiological condition Status: Acute - Plan Plan: Continue with current treatment plan. Discharge planning in progress. Justification for Continued Inpatient Stay: Moving this patient to a less restrictive environment would likely result in decompensation. Request Healthcare Surrogate/Guardian Advocate?: Yes (1) Unspecified psychosis Qualifiers: Psychosis type: schizophrenia Schizophrenia type: paranoid schizophrenia Qualified Code(s): F20.0 - Paranoid schizophrenia
[2018-06-07] MEDS: levETIRAcetam 250 MG Tablet PO SCH ×2 (04:54→18:42)
--- NOTE | 2018-06-07 10:18 | P.PNPSY ---
Subjective Remarks: Reviewed electronic medical records and discussed case with staff. Follow-up was conducted in the hallway. Patient reports that she remains anxious over discharge plans. States that her appetite's been good in spite of that. She and the speech teacher continue to work on a safe discharge plan. She denies any side effects from the medications and has no complaints today. Mental Status Examination Appearance: Appropriate Consciousness: Alert Orientation: Person, Place, Date/Time Motor Activity: Other (No motor abnormalities noted) Speech: Hesitant (Improving though her word speaking with her aphasia is the same) Language: Adequate Fund of Knowledge: Inadequate Attention and Concentration: Adequate, Easily distracted Memory: Impaired Mood: Anxious Affect: Anxious Thought Process & Associations: Intact Thought Content: Appropriate Hallucination Type: None Delusion Type: None Suicidal Ideation: No Suicidal Plan: No Suicidal Intention: No Homicidal Ideation: No Homicidal Plan: No Homicidal Intention: No Insight: Fair Judgment: Impulsive Assessment and Plan - Assessment (1) Unspecified psychosis Code(s): F29 - Unspecified psychosis not due to a substance or known physiological condition Status: Acute - Plan Plan: Patient will be reevaluated by the attending psychiatrist. Continue with current treatment plan. Justification for Continued Inpatient Stay: Moving this patient to a less restrictive environment would likely result in decompensation. Request Healthcare Surrogate/Guardian Advocate?: Yes (1) Unspecified psychosis Qualifiers: Psychosis type: schizophrenia Schizophrenia type: paranoid schizophrenia Qualified Code(s): F20.0 - Paranoid schizophrenia
[2018-06-07] MEDS: Topiramate 25 MG Tablet PO SCH ×2 (10:27→21:00)
[2018-06-08] MEDS: levETIRAcetam 250 MG Tablet PO SCH ×2 (06:17→16:17)
[2018-06-08] MEDS: Topiramate 25 MG Tablet PO SCH ×2 (09:36→20:58)
--- NOTE | 2018-06-08 14:39 | P.PNPSY ---
Subjective Remarks: Reviewed electronic medical records and discussed case with staff. Follow-up was conducted in the day room. Staff reports that patient has been tearful due to visit yesterday with her brother. The brother had reported to staff that her house is uninhabitable as it has no week, running water, or working appliances. Patient states that she is anxious he "does not want to go to a homeless half-way". Counselors advised her that they will attempt to place her in assisted living facility however, they may not be possible. Otherwise, she states she is sleeping well and her appetite's been "okay". She denies any side effects from her medications. Mental Status Examination Appearance: Appropriate Consciousness: Alert Orientation: Person, Place, Date/Time Motor Activity: Other (No motor abnormalities noted) Speech: Hesitant (Improving though her word speaking with her aphasia is the same) Language: Adequate Fund of Knowledge: Inadequate Attention and Concentration: Adequate, Easily distracted Memory: Impaired Mood: Anxious Affect: Anxious Thought Process & Associations: Intact Thought Content: Appropriate Hallucination Type: None Delusion Type: None Suicidal Ideation: No Suicidal Plan: No Suicidal Intention: No Homicidal Ideation: No Homicidal Plan: No Homicidal Intention: No Insight: Fair Judgment: Impulsive Assessment and Plan - Assessment (1) Unspecified psychosis Code(s): F29 - Unspecified psychosis not due to a substance or known physiological condition Status: Acute - Plan Plan: Patient will be reevaluated by the attending psychiatrist. Continue with current treatment plan. Safe discharge planning continues to be worked on. Justification for Continued Inpatient Stay: Moving this patient to a less restrictive environment would likely result in decompensation. Request Healthcare Surrogate/Guardian Advocate?: Yes (1) Unspecified psychosis Qualifiers: Psychosis type: schizophrenia Schizophrenia type: paranoid schizophrenia Qualified Code(s): F20.0 - Paranoid schizophrenia
[2018-06-09] MEDS: levETIRAcetam 250 MG Tablet PO SCH ×2 (06:00→16:49)
[2018-06-09] MEDS: Topiramate 25 MG Tablet PO SCH ×2 (08:25→21:59)
--- NOTE | 2018-06-09 16:07 | P.PNPSY ---
Subjective Remarks: Patient seen for follow-up, chart reviewed. Discussion with nursing staff reported that patient with no behavioral changes, has been visible on the unit and attending groups. Patient was found heavily on unit noted B, cooperative. Patient states she is feeling anxious" as she is worried about where she will be discharged to as attempts to reach out to family and friends have failed. She reports eating and drinking well no difficulty or bowel movement. Patient denies feeling depressed denies any suicide ideation at this time. Review of Systems All other systems reviewed negative except as stated in HPI Mental Status Examination Appearance: Appropriate Consciousness: Alert Orientation: Person, Place, Date/Time Motor Activity: Other (No motor abnormalities noted) Speech: Hesitant (Improving though her word speaking with her aphasia is the same) Language: Adequate Fund of Knowledge: Inadequate Attention and Concentration: Adequate, Easily distracted Memory: Impaired Mood: Anxious Affect: Anxious Thought Process & Associations: Intact Thought Content: Appropriate Hallucination Type: None Delusion Type: None Suicidal Ideation: No Suicidal Plan: No Suicidal Intention: No Homicidal Ideation: No Homicidal Plan: No Homicidal Intention: No Insight: Fair Judgment: Impulsive Assessment and Plan - Assessment (1) Unspecified psychosis Code(s): F29 - Unspecified psychosis not due to a substance or known physiological condition Status: Acute - Plan Plan: Patient continued with stable mood denying feeling depressed denying suicide ideations at this time. Patient continues to be noted to be anxious to the possibility of patient being discharged to home in a penitentiary has attempts to reach out to family friends have failed thus far. We will continue to monitor mood and behavior. We will continue current treatment. Discharge planning in progress. Justification for Continued Inpatient Stay: At risk of further decompensation at lower level care. Request Healthcare Surrogate/Guardian Advocate?: Yes (1) Unspecified psychosis Qualifiers: Psychosis type: schizophrenia Schizophrenia type: paranoid schizophrenia Qualified Code(s): F20.0 - Paranoid schizophrenia
[2018-06-10] MEDS: levETIRAcetam 250 MG Tablet PO SCH ×2 (06:15→17:18)
[2018-06-10] MEDS: Topiramate 25 MG Tablet PO SCH ×2 (09:22→21:33)
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
[2018-06-11] MEDS: levETIRAcetam 250 MG Tablet PO SCH ×2 (05:59→16:40)
--- NOTE | 2018-06-11 10:04 | P.PNPSY ---
Subjective Remarks: Reviewed electronic medical records and discussed case with staff. Follow-up was conducted in the dayroom with RN present. Patient is calm and cooperative. She states that she is aware that the staff is still working on her placement as she is unable to return home to her aunt. Has no concerns today. Sleeping and eating well. Interacting with other patients. Review of Systems All other systems reviewed negative except as stated in HPI Mental Status Examination Appearance: Appropriate Consciousness: Alert Orientation: Person, Place, Date/Time Motor Activity: Other (No motor abnormalities noted) Speech: Hesitant (Improving though her word speaking with her aphasia is the same) Language: Adequate Fund of Knowledge: Inadequate Attention and Concentration: Adequate, Easily distracted Memory: Impaired Mood: Good Affect: Appropriate Thought Process & Associations: Intact Thought Content: Appropriate Hallucination Type: None Delusion Type: None Suicidal Ideation: No Suicidal Plan: No Suicidal Intention: No Homicidal Ideation: No Homicidal Plan: No Homicidal Intention: No Insight: Fair Judgment: Impulsive Assessment and Plan - Assessment (1) Unspecified psychosis Code(s): F29 - Unspecified psychosis not due to a substance or known physiological condition Status: Acute - Plan Plan: Patient will be reevaluated by the attending psychiatrist. Continue with current treatment plan. Justification for Continued Inpatient Stay: Moving patient to a less restrictive environment may result in her decompensation. Request Healthcare Surrogate/Guardian Advocate?: Yes (1) Unspecified psychosis Qualifiers: Psychosis type: schizophrenia Schizophrenia type: paranoid schizophrenia Qualified Code(s): F20.0 - Paranoid schizophrenia
[2018-06-11] MEDS: Topiramate 25 MG Tablet PO SCH ×2 (10:17→21:28)
[2018-06-12] MEDS: levETIRAcetam 250 MG Tablet PO SCH ×2 (05:52→17:04)
[2018-06-12] MEDS: Topiramate 25 MG Tablet PO SCH ×2 (08:24→21:43)
--- NOTE | 2018-06-12 13:52 | P.TTN ---
- Patient Problems Problems: 1. Discharge planning 2. Medication compliance 3. Knowledge deficit 4. Lack of coping skills - Progress Toward Goals Provider Present: Dr. Carmen Patricio, Dr. Bay Le Provider Input: 06/12/18: Pt is stable. placement continues to be an issue per lack of pt funds. 05/31/2018:Per doctor patient medications are stable, she require a safe dc. 05/22: Pt continues to have placement hurdles (lack of finances and insurance, lack of social supports, lack of substance or other abuse qualifiers). Counselor is reaching out primarily to [facility] for placement. 05/17/18: Remain for further stabilization. needs placement. 05/15: Pt is homeless, provide her with resources that she can call, possibly [place] placement, no behavioral issues. 05/10/18: Discuss discharge plans for possible placement. Pt is new to this MD; pt to be assessed today. Nurse(s) Present: RN Nurse Input: 05/31/2018: per RN patient has no behavior, coopertative,and compliant with treatment. 05/17/18: Appropriate with Staff. Treatment cooperative, Med compliant, Sleeps well. Paranoid. 05/10/18: Appropriate with staff. Treatment cooperatie, med-compliant, calmer mood. Psychiatric Counselors Present: Shanthi Valdivia [facility], Other (Klaudia Aktinson) Psychiatric Therapist Input: 06/12/18: funding options under consideration, placement dependent on funding as pt is indolent and requires some level of supervision/caregiving. 05/31/2018: counselor spoke with Christy Gannon, patient' s aunt who reports she can not allow patient to return to her home due to her behavior; patient will be given the information for [facility]. 05/22: Pt remains in a vulnerable state, [facility] program has been only viable opportunity based on pt qualifiers. 05/17/18: Needs safe discharge. 05/10/18: Cooperative, more talkative, needs more time. Pt is new to this therapist, assessment today. Group Spec/RT/OT/AGUILAR Present: Shahla Bach, GPS, LAUREN Maldonado, Caio Le, OT, LAUREN Valenzuela Group Spec/RT/OT/AGUILAR Input: 06/12/18: Pt attends some groups, she is sociable, making attempts to engage despite her aphasic limitations. 05/31/2018 per RT patient has been socialable, and engage with peers. 05/22: Pt has been attending groups, she is appropriate, has cognitive processing delays but remains pleasant and engaged in group activities. 05/17/18: Pt attends the group activities. Pt isolates to self. Pt is pleasant and cooperative. 05/15: Pt attends most group activities appropriately, social with peers and staff. : Pt attends select group activities. Pt appears more social with peers. Pt has not attended groups since her admission to unit, she is a new pt over this weekend. Clinical Coordinator: Sandee Lopez KARY Additional Input: 05/22: Pt continues to have placement hurdles (lack of finances and insurance, lack of social supports, lack of substance or other abuse qualifiers). Counselor is reaching out primarily to [facility] for placement - Discharge Plan Other 06/12/18: Pt is stable. placement continues to be an issue per lack of pt funds. 05/15: Pending placement for pt Pt is new, no current discharge plan has been formulated. - Documentation Scribe: Shahla Bach Teaching Recipient: Patient
--- NOTE | 2018-06-12 16:27 | P.PNPSY ---
Subjective Remarks: Patient seen for follow-up, chart reviewed. Discussion with nursing staff reported that patient noted to be, cooperative and visible on the unit. Patient was found ambulating on unit noted B, cooperative. Patient reports feeling "anxious" in regards to her discharge planning where she was discharged to. Patient attending groups, but denies feeling depressed denying any perceptional services, denies any suicidal homicidal ideations. Patient aware that patient is a list of family and friends are not viable options to assist in her discharge or housing. 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) Language: Adequate Fund of Knowledge: Inadequate Attention and Concentration: Adequate, Easily distracted Memory: Impaired Mood: Anxious Affect: Anxious Thought Process & Associations: Intact Thought Content: Appropriate Hallucination Type: None Delusion Type: None Suicidal Ideation: No Suicidal Plan: No Suicidal Intention: No Homicidal Ideation: No Homicidal Plan: No Homicidal Intention: No Insight: Fair Judgment: Impulsive Assessment and Plan - Assessment (1) Unspecified psychosis Code(s): F29 - Unspecified psychosis not due to a substance or known physiological condition Status: Acute - Plan Plan: Patient continues stable mood as always noted to have some anxiety related to text. We will continue current treatment. We will continue to monitor mood and behavior. Treatment team currently looking for options of patient having safe discharge plan. Discharge planning in progress. Justification for Continued Inpatient Stay: At risk of further decompensation at lower level care. Request Healthcare Surrogate/Guardian Advocate?: Yes (1) Unspecified psychosis Qualifiers: Psychosis type: schizophrenia Schizophrenia type: paranoid schizophrenia Qualified Code(s): F20.0 - Paranoid schizophrenia
[2018-06-13] MEDS: levETIRAcetam 250 MG Tablet PO SCH ×2 (06:07→16:50)
[2018-06-13] MEDS: Topiramate 25 MG Tablet PO SCH ×2 (08:26→22:04)
--- NOTE | 2018-06-13 16:15 | P.PNPSY ---
Subjective Remarks: Patient seen for follow up; chart reviewed. Discussion with nursing staff reported tearful that she has not heard from her family. Patient was found ambulating on unit noted B, cooperative. Patient states that she is feeling down due to no communication with her children. She states that her mood recently has been mostly anxious due to unknown discharge plan in terms of where she will go upon discharge. She states that she is feeling depressed due to her birthday coming up on Tuesday and that she misses her children. She states that she has stopped trying to contact them last week as attempts have been unsuccessful. Patient denies any adverse drug reactions denies any suicide ideation reports her appetite being so-so and states that she continues to attend groups and activities on the unit. 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) Language: Adequate Fund of Knowledge: Inadequate Attention and Concentration: Adequate, Easily distracted Memory: Impaired Mood: Anxious Affect: Anxious Thought Process & Associations: Intact Thought Content: Appropriate Hallucination Type: None Delusion Type: None Suicidal Ideation: No Suicidal Plan: No Suicidal Intention: No Homicidal Ideation: No Homicidal Plan: No Homicidal Intention: No Insight: Fair Judgment: Impulsive Assessment and Plan - Assessment (1) Unspecified psychosis Code(s): F29 - Unspecified psychosis not due to a substance or known physiological condition Status: Acute - Plan Plan: Patient this time continues with stable mood but noted to be depressed today with congruent affect due to her upcoming birthday and not having been in touch with her children. Patient continues to deny any psychotic symptoms denies any suicidal homicidal ideations. We will continue current treatment. We will continue to monitor mood and behavior. Discharge planning a progress. Justification for Continued Inpatient Stay: At risk of further decompensation at lower level care. Request Healthcare Surrogate/Guardian Advocate?: Yes (1) Unspecified psychosis Qualifiers: Psychosis type: schizophrenia Schizophrenia type: paranoid schizophrenia Qualified Code(s): F20.0 - Paranoid schizophrenia
[2018-06-14] MEDS: levETIRAcetam 250 MG Tablet PO SCH ×2 (05:25→17:52)
[2018-06-14] MEDS: Topiramate 25 MG Tablet PO SCH ×2 (08:32→21:34)
--- NOTE | 2018-06-14 15:35 | P.PNPSY ---
Subjective Remarks: Patient seen for follow-up, chart reviewed. Discussion with nursing staff reported that patient noted to be with more sad affect she continues to be worried about her discharge plan. Patient left message with daughter's voicemail. Patient was found sitting in hospital chair in day room noted B, cooperative. Patient states she is feeling somewhat sad today due to the uncertainty of where she will be discharged to. Patient continues to participate in groups and activities continues to have adequate appetite but denying any suicidal homicidal ideations nor any psychotic symptoms at this time. 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) Language: Adequate Fund of Knowledge: Inadequate Attention and Concentration: Adequate, Easily distracted Memory: Impaired Mood: Sad Affect: Sad Thought Process & Associations: Intact Thought Content: Appropriate Hallucination Type: None Delusion Type: None Suicidal Ideation: No Suicidal Plan: No Suicidal Intention: No Homicidal Ideation: No Homicidal Plan: No Homicidal Intention: No Insight: Fair Judgment: Impulsive Assessment and Plan - Assessment (1) Unspecified psychosis Code(s): F29 - Unspecified psychosis not due to a substance or known physiological condition Status: Acute - Plan Plan: Patient recent depressed mood related to the uncertainty of her discharge but in general has been mostly feeling anxious due to wanting a safe place to be discharged to. Patient denies any psychotic symptoms denies any SI or HI at this time. Continue current treatment. Continue to monitor mood and behavior. Discharge planning a progress. Justification for Continued Inpatient Stay: At risk of further decompensation at lower level care. Request Healthcare Surrogate/Guardian Advocate?: Yes (1) Unspecified psychosis Qualifiers: Psychosis type: schizophrenia Schizophrenia type: paranoid schizophrenia Qualified Code(s): F20.0 - Paranoid schizophrenia
[2018-06-15] MEDS: levETIRAcetam 250 MG Tablet PO SCH ×2 (05:40→17:29)
--- NOTE | 2018-06-15 09:03 | P.TTN ---
- Patient Problems Problems: 1. Discharge planning 2. Medication compliance 3. Knowledge deficit 4. Lack of coping skills - Progress Toward Goals Provider Present: Dr. Carmen Patricio, Dr. Bay Le Provider Input: 06/14/18: Pt stable. Placement continues to be obstacle to safe discharge. Sandee DeidreCristal seeking funding assistance for placement consideration. Shanthi to contact [facility] with [facility] and [facility] to pursure Medicaid for pt. 06/12/18: Pt is stable. placement continues to be an issue per lack of pt funds. 05/31/2018:Per doctor patient medications are stable, she require a safe dc. 05/22: Pt continues to have placement hurdles (lack of finances and insurance, lack of social supports, lack of substance or other abuse qualifiers). Counselor is reaching out primarily to [facility] for placement. 05/17/18: Remain for further stabilization. needs placement. 05/15: Pt is homeless, provide her with resources that she can call, possibly [place] placement, no behavioral issues. 05/10/18: Discuss discharge plans for possible placement. Pt is new to this MD; pt to be assessed today. Nurse(s) Present: RN Nurse Input: 05/31/2018: per RN patient has no behavior, coopertative,and compliant with treatment. 05/17/18: Appropriate with Staff. Treatment cooperative, Med compliant, Sleeps well. Paranoid. 05/10/18: Appropriate with staff. Treatment cooperatie, med-compliant, calmer mood. Psychiatric Counselors Present: Shanthi Valdivia, [facility], Other (Klaudia Atkinson) Psychiatric Therapist Input: 06/12/18: funding options under consideration, placement dependent on funding as pt is indolent and requires some level of supervision/caregiving. 05/31/2018: counselor spoke with Christy Gannon, patient' s aunt who reports she can not allow patient to return to her home due to her behavior; patient will be given the information for [facility]. 05/22: Pt remains in a vulnerable state, [facility] has been only viable opportunity based on pt qualifiers. 05/17/18: Needs safe discharge. 05/10/18: Cooperative, more talkative, needs more time. Pt is new to this therapist, assessment today. Group Spec/RT/OT/AGUILAR Present: Shahla Bach, GPS, Jen Camarillo, AGUILAR, Caio Le, OT, Kalpesh Browning, AGUILAR Group Spec/RT/OT/AGUILAR Input: 06/14/18: Pt attends most groups, continuing to be as sociable as she can, she occasionally withdraws relative to her communication and cognitive deficits. 06/12/18: Pt attends some groups, she is sociable, making attempts to engage despite her aphasic limitations. 2017 per RT patient has been socialable, and engage with peers. 05/22: Pt has been attending groups, she is appropriate, has cognitive processing delays but remains pleasant and engaged in group activities. 05/17/18: Pt attends the group activities. Pt isolates to self. Pt is pleasant and cooperative. 05/15: Pt attends most group activities appropriately, social with peers and staff. : Pt attends select group activities. Pt appears more social with peers. Pt has not attended groups since her admission to unit, she is a new pt over this weekend. Clinical Coordinator: Sandee Lopez [facility] Additional Input: 05/22: Pt continues to have placement hurdles (lack of finances and insurance, lack of social supports, lack of substance or other abuse qualifiers). Counselor is reaching out primarily to [facility] for placement - Discharge Plan Other 06/14/18: Placement continues to be obstacle to safe discharge. Sandee Hayes seeking funding assistance for placement consideration. Shanthi to contact Isabell Lantigua with [facility] and [facility] to pursure Medicaid for pt. 06/12/18: Pt is stable. placement continues to be an issue per lack of pt funds. 05/15: Pending placement for pt Pt is new, no current discharge plan has been formulated. - Documentation Scribe: Shahla Bach Teaching Recipient: Patient
[2018-06-15] MEDS: Topiramate 25 MG Tablet PO SCH ×2 (09:05→21:09)
--- NOTE | 2018-06-15 16:26 | P.PNPSY ---
Subjective Remarks: Patient seen for follow-up, chart reviewed. Discussion with nursing staff reported that patient continues be noted to be's anxious and worried about discharge planning. Patient was found heavily on unit but was noted to be participating in groups earlier in the morning. Patient states he is feeling "okay" continues to feel stressed about possible discharge plan stating that she did not want to be homeless. Patient has been attending groups, continues to report her mood being the same, eating and drinking well. Patient denies any perceptional service of delusions at this time. Patient denies any SI or HI. 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) Language: Adequate Fund of Knowledge: Inadequate Attention and Concentration: Adequate, Easily distracted Memory: Impaired Mood: Anxious Affect: Anxious Thought Process & Associations: Intact Thought Content: Appropriate Hallucination Type: None Delusion Type: None Suicidal Ideation: No Suicidal Plan: No Suicidal Intention: No Homicidal Ideation: No Homicidal Plan: No Homicidal Intention: No Insight: Fair Judgment: Impulsive Assessment and Plan - Assessment (1) Unspecified psychosis Code(s): F29 - Unspecified psychosis not due to a substance or known physiological condition Status: Acute - Plan Plan: Patient continued with anxious mood secondary to uncertainty of her discharge. We will continue current treatment. We will order Keppra levels to monitor. We will continue to monitor him and behavior. Continue rest of medications. Continue search for adequate discharge disposition. Justification for Continued Inpatient Stay: At risk of further decompensation at lower level care. Request Healthcare Surrogate/Guardian Advocate?: Yes (1) Unspecified psychosis Qualifiers: Psychosis type: schizophrenia Schizophrenia type: paranoid schizophrenia Qualified Code(s): F20.0 - Paranoid schizophrenia
[2018-06-15 22:05] LABS: Baso % (Auto) 0.2 % (0.0-2.0); Eos # (Auto) 0.2 th/mm3 (0.0-0.4); Eos % (Auto) 2.9 % (0.0-4.0); Hematocrit 35.6 % (35.0-46.0); Hemoglobin 12.6 gm/dL (11.6-15.3); Lymph # (Auto) 2.4 th/mm3 (1.0-4.8); Lymph % (Auto) 36.8 % (9.0-44.0); Mean Corpuscular HGB Conc 35.4 % (32.0-36.0); Mean Corpuscular Volume 95.8 fL (80.0-100.0); Mean Platelet Volume 7.9 fL (7.0-11.0); Mono # (Auto) 0.6 th/mm3 (0.0-0.9); Mono % (Auto) 8.7 % (0.0-8.0); Neut # (Auto) 3.3 th/mm3 (1.8-7.7); Neut % (Auto) 51.4 % (16.0-70.0); Platelet Count 194 th/mm3 (150-450); Red Blood Count 3.71 mil/mm3 (4.00-5.30); Red Cell Distribution Width 12.9 % (11.6-17.2); White Blood Count 6.4 th/mm3 (4.0-11.0)
[2018-06-15 22:27] LABS: Albumin 3.4 g/dL (3.4-5.0); Anion Gap 10 meq/L (5-15); Blood Urea Nitrogen 20 mg/dL (7-18); Calcium 8.4 mg/dL (8.5-10.1); Carbon Dioxide 24.3 meq/L (21.0-32.0); Chloride 108 meq/L (98-107); Glomerular Filtration Rate 55 mL/min (>89); Glucose,Random 88 mg/dL (74-106); Potassium 3.3 meq/L (3.5-5.1); Sodium 142 meq/L (136-145)
[2018-06-15 22:28] LABS: Alanine Aminotransferase 19 U/L (10-53); Aspartate Aminotransferase 15 U/L (15-37)
[2018-06-15 22:30] LABS: Alkaline Phosphatase 73 U/L (45-117); Total Protein 6.8 g/dL (6.4-8.2)
[2018-06-16] MEDS: levETIRAcetam 250 MG Tablet PO SCH ×2 (06:50→17:43)
[2018-06-16] MEDS: Topiramate 25 MG Tablet PO SCH ×2 (08:58→21:00)
--- NOTE | 2018-06-16 15:57 | P.PNPSY ---
Subjective Remarks: Patient seen for follow-up, chart reviewed. Discussion with nursing staff reported that patient noted to be sad on the unit as her birthday is tomorrow and will be spending it here in the hospital, patient slept. Patient was found lying hospital bed noted B, cooperative. Patient looking dysphoric stating that she is feeling "down" because her birthday is tomorrow and she has not been in touch with her children despite her leaving voice messages on her voicemail. When asked about thoughts of not wanting to be alive she states "so- so" which started today due to her thinking about her birthday tomorrow with no family to celebrate with. 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) Language: Adequate Fund of Knowledge: Inadequate Attention and Concentration: Adequate, Easily distracted Memory: Impaired Mood: Sad Affect: Sad Thought Process & Associations: Intact Thought Content: Appropriate Hallucination Type: None Delusion Type: None Suicidal Ideation: No Suicidal Plan: No Suicidal Intention: No Homicidal Ideation: No Homicidal Plan: No Homicidal Intention: No Insight: Fair Judgment: Impulsive Assessment and Plan - Assessment (1) Unspecified psychosis Code(s): F29 - Unspecified psychosis not due to a substance or known physiological condition Status: Acute - Plan Plan: Patient noted to be more sad recently due to her upcoming birthday tomorrow with no contact with family thus far despite her multiple attempts to reach them. We will continue current treatment. We will continue to monitor mood and behavior. Treatment he continues to search for appropriate discharge placement upon discharge. Justification for Continued Inpatient Stay: At risk of further decompensation at lower level care. Request Healthcare Surrogate/Guardian Advocate?: Yes (1) Unspecified psychosis Qualifiers: Psychosis type: schizophrenia Schizophrenia type: paranoid schizophrenia Qualified Code(s): F20.0 - Paranoid schizophrenia
[2018-06-17] MEDS: Acetaminophen 325 MG Tablet PO PRN (04:59)
[2018-06-17] MEDS: levETIRAcetam 250 MG Tablet PO SCH ×2 (05:47→16:13)
[2018-06-17] MEDS: Topiramate 25 MG Tablet PO SCH ×2 (08:34→22:19)
--- NOTE | 2018-06-17 13:37 | P.PNPSY ---
Subjective Remarks: Patient was seen and case discussed with nursing. It is patient's birthday today. She is appreciative of her birthday card and cake. Patient says that "at least the staff care about me, my family does not." She denies suicidal or homicidal ideation intent or plan. 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) Language: Adequate Fund of Knowledge: Inadequate Attention and Concentration: Adequate, Easily distracted Memory: Impaired Mood: Sad Affect: Sad Thought Process & Associations: Intact Thought Content: Appropriate Hallucination Type: None Delusion Type: None Suicidal Ideation: No Suicidal Plan: No Suicidal Intention: No Homicidal Ideation: No Homicidal Plan: No Homicidal Intention: No Insight: Fair Judgment: Impulsive Assessment and Plan - Assessment (1) Unspecified psychosis Code(s): F29 - Unspecified psychosis not due to a substance or known physiological condition Status: Acute - Plan Plan: Continue current treatment plan Justification for Continued Inpatient Stay: Patient would decompensate in a less restrictive setting Request Healthcare Surrogate/Guardian Advocate?: Yes (1) Unspecified psychosis Qualifiers: Psychosis type: schizophrenia Schizophrenia type: paranoid schizophrenia Qualified Code(s): F20.0 - Paranoid schizophrenia
[2018-06-18] MEDS: levETIRAcetam 250 MG Tablet PO SCH ×2 (05:26→16:32)
--- NOTE | 2018-06-18 09:02 | P.PNPSY ---
Subjective Remarks: Medical record reviewed and discussed with nursing staff. Patient in hallway talking with other patient. Rounded with CLIFF Sargent. Patient states that she is doing well . She is sleeping and eating. Less anxious. Participates in unit activities. Waiting for placement. 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) Language: Adequate Fund of Knowledge: Inadequate Attention and Concentration: Adequate, Easily distracted Memory: Impaired Mood: Sad Affect: Sad Thought Process & Associations: Intact Thought Content: Appropriate Hallucination Type: None Delusion Type: None Suicidal Ideation: No Suicidal Plan: No Suicidal Intention: No Homicidal Ideation: No Homicidal Plan: No Homicidal Intention: No Insight: Fair Judgment: Impulsive Assessment and Plan - Assessment (1) Unspecified psychosis Code(s): F29 - Unspecified psychosis not due to a substance or known physiological condition Status: Acute - Plan Plan: Continue current treatment plan Justification for Continued Inpatient Stay: Moving patient to a less restrictive environment may result in her decompensation. Request Healthcare Surrogate/Guardian Advocate?: Yes (1) Unspecified psychosis Qualifiers: Psychosis type: schizophrenia Schizophrenia type: paranoid schizophrenia Qualified Code(s): F20.0 - Paranoid schizophrenia
[2018-06-18] MEDS: Topiramate 25 MG Tablet PO SCH ×2 (10:05→21:57)
[2018-06-19] MEDS: Topiramate 25 MG Tablet PO SCH ×2 (08:41→21:07)
[2018-06-19] MEDS: levETIRAcetam 250 MG Tablet PO SCH ×2 (08:42→16:48)
--- NOTE | 2018-06-19 17:15 | P.PNPSY ---
Subjective Remarks: Patient seen for follow-up, chart reviewed. Discussion with nursing staff reported that patient noted with less dysphoric affect, compliant with medications and attending groups. Patient was found heavily on unit in casual clothing noted to be, cooperative Brighter affect today. Patient states that her aunt had dropped off her clothes over the weekend but did not meet with her. She mentions having celebrate her birthday with staff on Tuesday which staff had acquired a birthday cake for her which she was happy about. She states that she and attending groups and her mood has been "okay, reports feeling a little depressed due to concerns of her discharge planning but denies any suicidal homicidal ideations. Patient continues to deny any perceptional services or delusions. 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) Language: Adequate Fund of Knowledge: Inadequate Attention and Concentration: Adequate, Easily distracted Memory: Impaired Mood: Sad ("A little") Affect: Appropriate Thought Process & Associations: Intact Thought Content: Appropriate Hallucination Type: None Delusion Type: None Suicidal Ideation: No Suicidal Plan: No Suicidal Intention: No Homicidal Ideation: No Homicidal Plan: No Homicidal Intention: No Insight: Fair Judgment: Impulsive Assessment and Plan - Assessment (1) Unspecified psychosis Code(s): F29 - Unspecified psychosis not due to a substance or known physiological condition Status: Acute - Plan Plan: Patient noted with improved mood, although reports feeling a little depressed likely secondary to her worry of discharge planning. We will continue current treatment. We will order basic metabolic panel to continue to monitor renal function. Continue to monitor mood and behavior. Discharge planning in progress. Justification for Continued Inpatient Stay: At risk of further decompensation at lower level care. Request Healthcare Surrogate/Guardian Advocate?: Yes (1) Unspecified psychosis Qualifiers: Psychosis type: schizophrenia Schizophrenia type: paranoid schizophrenia Qualified Code(s): F20.0 - Paranoid schizophrenia
[2018-06-19 21:59] LABS: Calcium 8.6 mg/dL (8.5-10.1); Carbon Dioxide 23.3 meq/L (21.0-32.0); Potassium 3.3 meq/L (3.5-5.1)
[2018-06-20] MEDS: levETIRAcetam 250 MG Tablet PO SCH ×2 (06:30→17:13)
[2018-06-20] MEDS: Topiramate 25 MG Tablet PO SCH ×2 (10:17→21:04)
--- NOTE | 2018-06-20 15:05 | P.PNPSY ---
Subjective Remarks: Patient seen for follow-up, chart reviewed. Discussion with nursing staff reported that patient was noted to be upset that she was noted to be crying on the phone if she was leaving a message for her daughter. Patient was found heavily on unit noted B, cooperative. Patient states she is feeling scared and confused due to her current and clarified disposition upon discharge. She states she is feeling sad that she was not able to contact her home communicate with her children. She was noted to be tearful when speaking about her relationship discord with them. She is attending groups and has been visible on the unit eating and drinking well. Patient denies any suicide ideations. Denies any perceptional disturbances or delusions. 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) Language: Adequate Fund of Knowledge: Inadequate Attention and Concentration: Adequate, Easily distracted Memory: Impaired Mood: Sad Affect: Other (Tearful at times) Thought Process & Associations: Intact Thought Content: Appropriate Hallucination Type: None Delusion Type: None Suicidal Ideation: No Suicidal Plan: No Suicidal Intention: No Homicidal Ideation: No Homicidal Plan: No Homicidal Intention: No Insight: Fair Judgment: Impulsive Assessment and Plan - Assessment (1) Unspecified psychosis Code(s): F29 - Unspecified psychosis not due to a substance or known physiological condition Status: Acute - Plan Plan: Patient noted be tearful when speaking about her relationship discord with her children, denying any suicide ideations. Patient is visible on the unit attending groups and caring for her ADLs. We will continue current treatment. Continue to monitor with behavior. We will transfer patient to: 2600 unit for easier acess to groups and activities. Discharge planning in progress. Justification for Continued Inpatient Stay: At risk of further decompensation at lower level care. Request Healthcare Surrogate/Guardian Advocate?: Yes (1) Unspecified psychosis Qualifiers: Psychosis type: schizophrenia Schizophrenia type: paranoid schizophrenia Qualified Code(s): F20.0 - Paranoid schizophrenia
[2018-06-21] MEDS: levETIRAcetam 250 MG Tablet PO SCH ×2 (06:01→16:18)
[2018-06-21] MEDS: Topiramate 25 MG Tablet PO SCH ×2 (08:06→21:27)
--- NOTE | 2018-06-21 15:10 | P.PNPSY ---
Subjective Remarks: Patient seen for follow-up, chart reviewed. Discussion with nursing staff reported that patient continues to take groups and compliant with treatment. Patient was found participating group activity noted B, cooperative. Patient noted to be anxious today as she is scheduled for discharge tomorrow to a retirement in the area which is closer to her family. She states that she is feeling nervous about going but hopeful that she will continue to engage in her treatment and with the help of social media strategist to be established permanent residence. She denies feeling depressed denies any suicidal homicidal ideations , denies any perceptional services or delusions at this time. 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) Language: Adequate Fund of Knowledge: Inadequate Attention and Concentration: Adequate, Easily distracted Memory: Impaired Mood: Anxious Affect: Anxious Thought Process & Associations: Intact, Goal directed, Linear Thought Content: Appropriate Hallucination Type: None Delusion Type: None Suicidal Ideation: No Suicidal Plan: No Suicidal Intention: No Homicidal Ideation: No Homicidal Plan: No Homicidal Intention: No Insight: Fair Judgment: Impulsive Assessment and Plan - Assessment (1) Unspecified psychosis Code(s): F29 - Unspecified psychosis not due to a substance or known physiological condition Status: Acute - Plan Plan: Patient this time continues with worry about being discharged to a retirement but is hopeful and goal directed. We will continue current treatment. We will continue to monitor mood and behavior. Patient likely for discharge tomorrow morning as transportation has been set up for 7:30 AM. Justification for Continued Inpatient Stay: At risk of further decompensation at lower level care. Request Healthcare Surrogate/Guardian Advocate?: Yes (1) Unspecified psychosis Qualifiers: Psychosis type: schizophrenia Schizophrenia type: paranoid schizophrenia Qualified Code(s): F20.0 - Paranoid schizophrenia
[2018-06-22 05:42] VITALS: BP 132/64; PULSE 80; RESP 18; TEMP 98; O2SAT 97
[2018-06-22] MEDS: levETIRAcetam 250 MG Tablet PO SCH (06:21)
--- NOTE | 2018-06-22 17:52 | P.DSPSY ---
Psychiatry Discharge Summary Inpatient Psychiatric care?: Yes Advance Directives: No Mental Health Advance Directive: No Health Care Proxy: No - Admission Admission Date: May 02, 2018 13:57 - Admission Diagnosis (1) Unspecified psychosis Code(s): F29 - Unspecified psychosis not due to a substance or known physiological condition Brief History: Patient is a 47-year-old female who comes here under Ray act from [facility] dated 05/01/2018 signed by a [id number] Sea that document reviewed stating suicidal plan to take pill homicidal plan to hurt family with a knife patient was seen screen at that facility radiographs were done that showed polycystic kidneys, urine toxicology negative blood alcohol level negative. Patient transferred to this facility for further care and attention after being medically cleared patient initially seen in her room with nurse Tyrese. Patient anxious markedly paranoid vigilant and distractible. She is quite disorganized in her responses essentially refusing to give any information. Though reluctantly acknowledges history of mental illness that she does see a psychiatrist she has been hospitalized in the past otherwise her responses were see my records. She became more and more angry finally stopped speaking with me. I did call patient's and Christy Gannon that [phone] we stated she had been caring for Vanessa since her stroke in September 2017. Ms. Childress states she has had 3-4 TIAs since then. Does see mental health through [facility]. But has had a long psychiatric history preceding the stroke. It appears that Vanessa is becoming more more psychotic and bizarre. She has been making phone calls to her son and daughter threatening to harm them. She left the house on Tuesday and is not been seen since then they were about to place a missing persons for her. Ms. Childress states that the patient daughter Ivana Diez at [phone] his power of commonwealth attorney, she also has a son will be involved at [phone] there is involved with her. It appears that this patient's mental history goes back many years. In any event at the present time patient meets criteria for further assessment and treatment under the Ray act referral she does not have capacity thus I will ask for health care surrogate and guardian advocate as well as a second opinion under the petition. We will have our hospitalist's assess patient also. I feel she may benefit from being assessed by our neuropsychologist at this time I feel she is too paranoid for him to make an accurate assessment. I did leave a message with patient's daughter hopefully she will return our call. We will refrain from any psychiatric medications until we get further information. We will have counselor nurse attempted to call [facility] to see if we can get some information from them Tobacco Use In Past 30 Days: No How Often Do You Have a Drink Containing Alcohol: Never Hospital Course: Patient is a 47-year-old female, domiciled with and recently who comes here under Ray act from [facility] stating suicidal plan to take pill homicidal plan to hurt family with a knife which patient was transferred to the inpatient psychiatry for further evaluation and management., Patient was admitted to a locked, inpatient psychiatric unit. Appropriate precautions were in place throughout patient's hospital stay. Patient was seen and examined on the unit by psychiatry. Psychotropic medications were adjusted. There was no evidence of any further evidence of suicidality or homicidality on the inpatient unit. Patient's mood and psychotic symptoms improved with the benefit of psychopharmacological treatment and had no behavioral disturbance since admission. Patient was noted to have reached stable mood, noted to participate and engage in treatment and interact with staff adequately. Patient noted to be future oriented with plans to continue treatment and outpatient follow-up appointments for continuity of care. Counselor has arranged discharge plan which patient would be discharged to a jail with services to be provided through social media coordinator at the jail. On the day of discharge: Patient seen and examined; chart reviewed. Case discussed with nurse and counselor. No behavioral issues overnight. On my examination today, the patient denies any suicidal homicidal ideation, intent or plan on direct questioning and contracts for safety. Patient denies any perceptional disturbances and no delusional material verbalized today. Patient denies any side effects from medication and has understanding of medication regimen and education. No physical complaints. Suicide and violence risk assessment on day of discharge both suggest lower imminent risk, and the patient's level of function is adequate for plan level of outpatient care. Patient has maximized benefit from this inpatient psychiatric hospital stay and will be discharged with discharge plan as arranged by counselor. Patient advised to return to psychiatric emergency room for any concerning psychiatric symptoms. Patient agrees with plan. - Discharge Discharge Date: 06/22/18 - Discharge Diagnosis (1) Unspecified psychosis Code(s): F29 - Unspecified psychosis not due to a substance or known physiological condition Status: Acute Discharge Disposition: Home - Discharge Instructions Discharge Diet: Heart Healthy Diet Activities You Can Perform: Weight Bearing As Tolerat - Discharge Time > 30 minutes Mental Status Examination Appearance: Appropriate Consciousness: Alert Orientation: Person, Place, Date/Time Motor Activity: Other (No motor abnormalities noted) Speech: Hesitant (Due to residual effects from previous stroke) Language: Adequate Fund of Knowledge: Inadequate Attention and Concentration: Adequate, Easily distracted Memory: Impaired Mood: Appropriate Affect: Appropriate Thought Process & Associations: Intact, Goal directed, Linear Thought Content: Appropriate Hallucination Type: None Delusion Type: None Suicidal Ideation: No Suicidal Plan: No Suicidal Intention: No Homicidal Ideation: No Homicidal Plan: No Homicidal Intention: No Insight: Fair Judgment: Impulsive Discharge/Advance Care Plan - Results Vital Signs: Last Vital Signs Temp 98 F 06/22/18 05:42 Pulse 80 06/22/18 05:42 Resp 18 06/22/18 05:42 BP 132/64 06/22/18 05:42 Pulse Ox 97 06/22/18 05:42 Lab Results: Laboratory Results Hemoglobin A1c 5.3 % (4.3-6.0) 05/03/18 06:30 Triglycerides 60 mg/dL (42-150) 05/03/18 06:30 Cholesterol 143 mg/dL (120-200) 05/03/18 06:30 LDL Cholesterol, Calc 66 mg/dL (0-99) 05/03/18 06:30 HDL Cholesterol 65.0 mg/dL (40.0-60.0) H 05/03/18 06:30 Summary of Procedures: none Pending Results: None - Medications Number of antipsychotic medications at discharge: 1 - Discharge Care Plan Goals to Promote Your Health: * To prevent worsening of your condition and complications * To maintain your health at the optimal level Directions to Meet Your Goals: Take your medications as prescribed Follow your dietary instruction Follow activity as directed Keep your appointments as scheduled Take your immunizations and boosters as scheduled If your symptoms worsen call your PCP, if no PCP go to Urgent Care Center or Emergency Room For 28/02 questions related to your inpatient stay or results of tests pending at discharge, please contact Dr. Theodore Le MD at Smoking is Dangerous to Your Health. Avoid second hand smoking (1) Unspecified psychosis Qualifiers: Psychosis type: schizophrenia Schizophrenia type: paranoid schizophrenia Qualified Code(s): F20.0 - Paranoid schizophrenia (1) Unspecified psychosis Qualifiers: Psychosis type: schizophrenia Schizophrenia type: paranoid schizophrenia Qualified Code(s): F20.0 - Paranoid schizophrenia
== END 2018-06-22 08:00 | disposition home or self-care (01) ==
LOC: H270 13:57 → H260 18:14 → H250 05-07 12:29 → H260 05-17 17:12 → H250 05-17 17:30 → H260 06-20 12:56
PROVIDERS: ADMIT Student in an Organized Health Care Education/Training Program; ATTEND Student in an Organized Health Care Education/Training Program
CPT/HCPCS: 80048; 80053; 80061; 80177; 80299; 82491; 82550; 83036; 83735; 85025; C9204; J3486; Q0163